=== PATIENT | female | born 1965 | race Caucasian/White ===

== ENCOUNTER 2016-07-12 17:42 | Emergency (ER) | payer BC ==
[2016-07-12] MEDS ORDERED: HYDROcodone/APAP 5-325MG 1 EACH TAB PO STA (18:16)
--- NOTE | 2016-07-12 18:21 | ED ---
Recheck HPI - General Chief Complaint: Recheck/Abnormal Lab/Rx Stated Complaint: back pain, high blood pressure Time Seen by Provider: 07/12/16 18:07 Source: patient, RN notes reviewed Mode of arrival: ambulatory Limitations: no limitations - History of Present Illness Initial Comments: Patient is a 51-year-old female presents to the emergency room for evaluation of high blood pressure. Patient states she had an appointment for routine physical with her primary care provider yesterday. Patient states her blood pressure was high. Patient states she normally is on metoprolol and lisinopril. Patient states her lisinopril was just increased from 10 mg 20 mg yesterday. Patient states that she takes her blood pressure medications as directed. Patient states she was working with her outdoor fitness trainer at the gym and he took her blood pressure and it was high. Patient states she was advised by her outdoor fitness trainer to come to the emergency room. Patient denies headache, chest pain, shortness of breath, dizziness, changes in vision. Patient states she's been having on-and-off pain in her right flank area for the past year. Patient states the pain is not any worse with movement. Patient states pain is not any worse after eating. Patient denies nausea, abdominal pain, blood in urine, pain or burning during urination or trouble urinating. Patient denies any history kidney of stones. Denies any fevers, chills, weakness. Patient denies numbness or tingling in extremities. Patient denies anesthesia. Patient denies urinary or fecal incontinence. - Related Data Home Medications Medication Instructions Recorded Confirmed Ascorbic Acid [Vitamin C] 500 mg PO DAILY 07/12/16 07/12/16 Aspirin EC [Ecotrin Low Dose] 81 mg PO HS 07/12/16 07/12/16 Atorvastatin [Lipitor] 40 mg PO HS 07/12/16 07/12/16 Gluc/Adam-MSM#1/C/Perfecto/Paresh/Bor 1 tab PO DAILY 07/12/16 07/12/16 [Glucosamine-Chondroitin Tablet] Lisinopril-Hctz 20-12.5 mg 1 tab PO DAILY 07/12/16 07/12/16 [Zestoretic 20-12.5] Metoprolol Tartrate [Lopressor] 50 tab PO HS 07/12/16 07/12/16 Multivitamins, Thera [Multivitamin 1 tab PO DAILY 07/12/16 07/12/16 (formulary)] Chris's Wort 150 mg PO DAILY 07/12/16 07/12/16 Allergies Allergy/AdvReac Type Severity Reaction Status Date / Time No Known Allergies Allergy Verified 07/12/16 19:05 Review of Systems ROS Statement: Those systems with pertinent positive or pertinent negative responses have been documented in the HPI. ROS Other: All systems not noted in ROS Statement are negative. Past Medical History Past Medical History: Hyperlipidemia, Hypertension History of Any Multi-Drug Resistant Organisms: None Reported Past Surgical History: Section, Orthopedic Surgery Past Psychological History: No Psychological Hx Reported Smoking Status: Never smoker Past Alcohol Use History: None Reported Past Drug Use History: None Reported General Exam - General Exam Comments Initial Comments: Sitting in exam room, no acute distress. Limitations: no limitations General appearance: alert, in no apparent distress Head exam: Present: atraumatic, normocephalic, normal inspection Eye exam: Present: normal appearance ENT exam: Present: normal exam Neck exam: Present: normal inspection Respiratory exam: Present: normal lung sounds bilaterally. Absent: respiratory distress Cardiovascular Exam: Present: regular rate, normal rhythm, normal heart sounds GI/Abdominal exam: Present: soft, normal bowel sounds. Absent: distended, tenderness, guarding, rebound, rigid Extremities exam: Present: normal inspection Back exam: Present: normal inspection Neurological exam: Present: alert, oriented X3, CN II-XII intact, normal gait Psychiatric exam: Present: normal affect, normal mood Skin exam: Present: warm, dry, intact, normal color. Absent: rash Course Vital Signs 07/12/16 07/12/16 17:50 18:25 Temperature 98.2 F Pulse Rate 84 81 Respiratory 20 16 Rate Blood Pressure 192/95 173/100 O2 Sat by Pulse 98 100 Oximetry Medical Decision Making - Medical Decision Making Patient is a 51-year-old female presents to the emergency room for evaluation of hypertension and back pain. Urinalysis shows no acute findings. CT shows no significant findings. Patient's blood pressure decreased after pain medications given. Advised patient to continue taking blood pressure medications as directed. Patient states she understands everything that was discussed with her. Return parameters discussed. Case discussed with Dr. Crump. - Lab Data Lab Results 07/12/16 Range/Units 18:23 Urine Color Light Yellow Urine Appearance Clear (Clear) Urine pH 6.0 (5.0-8.0) Ur Specific [place] 1.005 (1.001-1.035) Urine Protein Negative (Negative) Urine Glucose (UA) Negative (Negative) Urine Ketones Negative (Negative) Urine Blood Negative (Negative) Urine Nitrite Negative (Negative) Urine Bilirubin Negative (Negative) Urine Urobilinogen <2.0 (<2.0) mg/dL Ur Leukocyte Esterase Negative (Negative) - Radiology Data Radiology results: report reviewed, image reviewed Disposition Clinical Impression: High blood pressure, Back pain Disposition: HOME SELF-CARE Condition: Good Instructions: Hypertension (ED), Back Pain (ED) Additional Instructions: Continue taking blood pressure medications as directed. Take Tylenol or Motrin as needed for back pain. Please follow up with primary care provider for reevaluation in 1-2 days. If any new symptom arises or symptoms worsen, return to ER as soon as possible. Referrals: Monica Barrera MD [Primary Care Provider] - 1-2 days Time of Disposition: 19:19
[2016-07-12 18:29] LABS: Appearance,Urine Clear (Clear); Bilirubin,Urine Negative (Negative); Glucose,Urine (UA) Negative (Negative); Ketones,Urine Negative (Negative); Leukocyte Esterase,Urine Negative (Negative); Nitrite,Urine Negative (Negative); Protein,Urine Negative (Negative); Specific Gravity,Urine 1.005 (1.001-1.035); UA Billing (MACRO vs. MICRO) CHEM; Urobilinogen,Urine <2.0 mg/dL (<2.0)
--- NOTE | 2016-07-12 18:46 | CT ---
EXAMINATION TYPE: CT abdomen pelvis wo con DATE OF EXAM: 07/12/2016 6:39 PM COMPARISON: NONE HISTORY: Right flank pain. CT DLP: 1004.30 mGycm Automated exposure control for dose reduction was used. TECHNIQUE: Helical acquisition of images was performed from the lung bases through the pelvis. FINDINGS: Lung bases are clear. There is no pleural effusion. There is a large hiatal hernia. Liver spleen pancreas gallbladder appear normal. Bile ducts are not dilated. There is no adrenal mass . Kidneys have normal size and contour. There is no hydronephrosis. Ureters are not dilated. There is no retroperitoneal adenopathy. There is minimal vascular calcification. The appendix appears to be s een and appears normal. I see no intestinal wall thickening. There are no dilated loops. Bladder is a lmost empty. There is no sign of a pelvic mass. There is no free fluid in the pelvis. There is a mild thoracolumbar levoscoliosis. . IMPRESSION: MILD THORACOLUMBAR LEVOSCOLIOSIS. NO SIGN OF ACUTE ABDOMEN AND PELVIS. LARGE HIATAL HERNIA.
[2016-07-12 19:26] VITALS: BP 140/81; PULSE 75; RESP 18; TEMP 98.3
== END 2016-07-12 19:25 | disposition home or self-care (01) ==
LOC: EC 17:42
DX: I10 Essential (primary) hypertension (principal); M54.9 Dorsalgia, unspecified; R10.9 Unspecified abdominal pain; E78.5 Hyperlipidemia, unspecified; Z79.82 Long term (current) use of aspirin; Z79.899 Other long term (current) drug therapy
CPT/HCPCS: 74176; 81003; 99284

== ENCOUNTER → 2016-07-18 | Outpatient (CLI) | payer BC | END | disposition home or self-care (01) | LOC: LABWHC1 10:15 | PROVIDERS: ATTEND Internal Medicine | DX: E83.52 Hypercalcemia (principal) | CPT/HCPCS: 36415; 82330; 83970 ==

== ENCOUNTER → 2016-07-29 | Outpatient (CLI) | payer BC ==
--- NOTE | 2016-08-01 09:44 | MM ---
Reason for exam: screening (asymptomatic). Last mammogram was performed 6 months ago. History: Patient is postmenopausal. Benign excisional biopsy of the left breast, 1996. Benign excisional biopsy of the left breast, 1995. Physical Findings: A clinical breast exam by your physician is recommended on an annual basis and results should be correlated with mammographic findings. MG 3D Screening Mammo W/Cad Bilateral CC and MLO view(s) were taken. Prior study comparison: January 29, 2016, right breast MG diagnostic mammo RT w CAD. August 03, 2015, right breast MG work up mamm w CAD RT. February 11, 2014, bilateral MG screening mammo w CAD. December 18, 2012, bilateral digital screening mammo w/CAD. The breast tissue is heterogeneously dense. This may lower the sensitivity of mammography. No significant changes when compared with prior studies. ASSESSMENT: Negative, BI-RAD 1 RECOMMENDATION: Routine screening mammogram of both breasts in 1 year.
== END | disposition home or self-care (01) ==
LOC: RADMAMWWP 10:52
PROVIDERS: ATTEND Internal Medicine
DX: Z12.31 Encounter for screening mammogram for malignant neoplasm of breast (principal)
CPT/HCPCS: 77063; G0202

== ENCOUNTER → 2017-09-22 | Outpatient (CLI) | payer BC ==
--- NOTE | 2017-09-25 11:53 | MM ---
Reason for exam: screening (asymptomatic). Last mammogram was performed 1 year and 2 months ago. History: Patient is postmenopausal. Benign excisional biopsy of the left breast, 1996. Benign excisional biopsy of the left breast, 1995. Physical Findings: A clinical breast exam by your physician is recommended on an annual basis and results should be correlated with mammographic findings. MG 3D Screening Mammo W/Cad Bilateral CC and MLO view(s) were taken. Prior study comparison: July 29, 2016, bilateral MG 3d screening mammo w/cad. January 29, 2016, right breast MG diagnostic mammo RT w CAD. The breast tissue is heterogeneously dense. This may lower the sensitivity of mammography. There is chronic nodularity bilaterally. There is no discrete abnormality. No significant changes when compared with prior studies. ASSESSMENT: Benign, BI-RAD 2 RECOMMENDATION: Routine screening mammogram of both breasts in 1 year.
== END | disposition home or self-care (01) ==
LOC: RADMAMWWP 10:56
PROVIDERS: ATTEND Obstetrics & Gynecology
DX: Z12.31 Encounter for screening mammogram for malignant neoplasm of breast (principal)
CPT/HCPCS: 77063; 77067

== ENCOUNTER 2018-01-14 20:29 | Inpatient (IN) | payer BC ==
[2018-01-14] MEDS ORDERED: SODIUM CHLORIDE 0.9% 1,000 ML IV STA ×2 (20:36)
--- NOTE | 2018-01-14 20:55 | ED ---
Nausea/Vomiting/Diarrhea HPI - General Chief complaint: Nausea/Vomiting/Diarrhea Stated complaint: NAUSEA,VOMITING Time Seen by Provider: 01/14/18 20:29 Source: patient, EMS, RN notes reviewed Mode of arrival: EMS Limitations: no limitations - History of Present Illness Initial comments: This is a 52-year-old female who states she is had nausea vomiting today with some abdominal pain she threw up about 4 times. [place] lightheaded dizzy she thought she almost passed out. She was brought in by EMS. She states she did receive IV fluids she does feel somewhat better at this time no abdominal pain. No chest pain palpitations no diarrhea dysuria or other symptoms MD complaint: nausea, vomiting, abdominal pain - Related Data Home Medications Medication Instructions Recorded Confirmed Ascorbic Acid [Vitamin C] 500 mg PO DAILY 07/12/16 07/12/16 Aspirin EC [Ecotrin Low Dose] 81 mg PO HS 07/12/16 07/12/16 Atorvastatin [Lipitor] 40 mg PO HS 07/12/16 07/12/16 Glucosam/Adam-Msm1/C/Perfecto/Bosw 1 tab PO DAILY 07/12/16 07/12/16 [Glucosamine-Chondroitin Tablet] Lisinopril-Hctz 20-12.5 mg 1 tab PO DAILY 07/12/16 07/12/16 [Zestoretic 20-12.5] Metoprolol Tartrate [Lopressor] 50 tab PO HS 07/12/16 07/12/16 Multivitamins, Thera [Multivitamin 1 tab PO DAILY 07/12/16 07/12/16 (formulary)] [place]'s Wort 150 mg PO DAILY 07/12/16 07/12/16 Allergies Allergy/AdvReac Type Severity Reaction Status Date / Time No Known Allergies Allergy Verified 07/12/16 19:05 Review of Systems ROS Statement: Those systems with pertinent positive or pertinent negative responses have been documented in the HPI. ROS Other: All systems not noted in ROS Statement are negative. Past Medical History Past Medical History: Hyperlipidemia, Hypertension History of Any Multi-Drug Resistant Organisms: None Reported Past Surgical History: Section, Orthopedic Surgery Past Psychological History: No Psychological Hx Reported Smoking Status: Never smoker Past Alcohol Use History: None Reported Past Drug Use History: None Reported General Exam - General Exam Comments Initial Comments: This is a well-developed well-nourished awake alert oriented 3 female Limitations: no limitations General appearance: alert, in no apparent distress Head exam: Present: atraumatic, normocephalic, normal inspection Eye exam: Present: normal appearance, PERRL, EOMI. Absent: scleral icterus, conjunctival injection, periorbital swelling ENT exam: Present: mucous membranes dry Neck exam: Present: normal inspection. Absent: tenderness, meningismus, lymphadenopathy Respiratory exam: Present: normal lung sounds bilaterally. Absent: respiratory distress, wheezes, rales, rhonchi, stridor Cardiovascular Exam: Present: regular rate, normal rhythm, normal heart sounds. Absent: systolic murmur, diastolic murmur, rubs, gallop, clicks GI/Abdominal exam: Present: soft, normal bowel sounds. Absent: distended, tenderness, guarding, rebound, rigid Extremities exam: Present: normal inspection, full ROM, normal capillary refill. Absent: tenderness, pedal edema, joint swelling, calf tenderness Back exam: Present: normal inspection Neurological exam: Present: alert, oriented X3, CN II-XII intact Psychiatric exam: Present: normal affect, normal mood Skin exam: Present: warm, dry, intact, normal color. Absent: rash Course Vital Signs 01/14/18 01/14/18 01/14/18 20:31 21:07 21:36 Temperature 98.7 F Pulse Rate 72 70 71 Respiratory 18 18 Rate Blood Pressure 112/60 118/66 122/68 O2 Sat by Pulse 100 100 99 Oximetry 01/14/18 22:20 Temperature Pulse Rate 74 Respiratory 16 Rate Blood Pressure 160/83 O2 Sat by Pulse 99 Oximetry - Reevaluation(s) Reevaluation #1: 01/14/18 21:45 The patient states she was thrown from better but when she went to x-ray and got up she felt lightheaded and nauseated again. She will receive an additional 500 mL of fluid. Reevaluation #2: 01/14/18 22:57 The patient later admitted that she was having coffee-ground emesis and dark bowel movements I did perform a rectal exam with a female nurse present and is heme positive. Medical Decision Making - Medical Decision Making I did discuss findings with patient and her and with Dr. go patient will be admitted with GI consultation. Patient will speed of about a year ago which was normal this appears be upper GI. Patient also states she had a prolonged period lasting about 3 weeks this may be contributory. - Lab Data Result diagrams: 01/14/18 20:55 01/14/18 20:55 Lab Results 01/14/18 01/14/18 01/14/18 Range/Units 20:55 20:55 20:55 WBC 10.5 (3.8-10.6) k/uL RBC 3.37 L (3.80-5.40) m/uL Hgb 9.3 L (11.4-16.0) gm/dL Hct 29.6 L (34.0-46.0) % MCV 88.1 (80.0-100.0) fL MCH 27.7 (25.0-35.0) pg MCHC 31.4 (31.0-37.0) g/dL RDW 16.7 H (11.5-15.5) % Plt Count 247 (150-450) k/uL Neutrophils % 76 % Lymphocytes % 14 % Monocytes % 5 % Eosinophils % 3 % Basophils % 1 % Neutrophils # 8.0 H (1.3-7.7) k/uL Lymphocytes # 1.5 (1.0-4.8) k/uL Monocytes # 0.5 (0-1.0) k/uL Eosinophils # 0.3 (0-0.7) k/uL Basophils # 0.1 (0-0.2) k/uL Hypochromasia Moderate Anisocytosis Slight Sodium 138 (137-145) mmol/L Potassium 4.0 (3.5-5.1) mmol/L Chloride 107 (98-107) mmol/L Carbon Dioxide 24 (22-30) mmol/L Anion Gap 7 mmol/L BUN 37 H (7-17) mg/dL Creatinine 0.55 (0.52-1.04) mg/dL Est GFR (CKD-EPI)AfAm >90 (>60 ml/min/1.73 sqM) Est GFR (CKD-EPI)NonAf >90 (>60 ml/min/1.73 sqM) Glucose 115 H (74-99) mg/dL Calcium 8.5 (8.4-10.2) mg/dL Total Bilirubin 0.5 (0.2-1.3) mg/dL AST 23 (14-36) U/L ALT 30 (9-52) U/L Alkaline Phosphatase 53 (38-126) U/L Total Protein 6.1 L (6.3-8.2) g/dL Albumin 3.5 (3.5-5.0) g/dL Amylase 38 (30-110) U/L Urine Color Light Yellow Urine Appearance Cloudy H (Clear) Urine pH 7.0 (5.0-8.0) Ur Specific [place] 1.021 (1.001-1.035) Urine Protein Trace H (Negative) Urine Glucose (UA) Negative (Negative) Urine Ketones Negative (Negative) Urine Blood Negative (Negative) Urine Nitrite Negative (Negative) Urine Bilirubin Negative (Negative) Urine Urobilinogen <2.0 (<2.0) mg/dL Ur Leukocyte Esterase Moderate H (Negative) Urine RBC 2 (0-5) /hpf Urine WBC 24 H (0-5) /hpf Ur Squamous Epith Cells 6 H (0-4) /hpf Amorphous Sediment Occasional H (None) /hpf Hyaline Casts 1 (0-2) /lpf Urine Mucus Rare H (None) /hpf Stool Occult Blood (Negative) 01/14/18 Range/Units 22:05 WBC (3.8-10.6) k/uL RBC (3.80-5.40) m/uL Hgb (11.4-16.0) gm/dL Hct (34.0-46.0) % MCV (80.0-100.0) fL MCH (25.0-35.0) pg MCHC (31.0-37.0) g/dL RDW (11.5-15.5) % Plt Count (150-450) k/uL Neutrophils % % Lymphocytes % % Monocytes % % Eosinophils % % Basophils % % Neutrophils # (1.3-7.7) k/uL Lymphocytes # (1.0-4.8) k/uL Monocytes # (0-1.0) k/uL Eosinophils # (0-0.7) k/uL Basophils # (0-0.2) k/uL Hypochromasia Anisocytosis Sodium (137-145) mmol/L Potassium (3.5-5.1) mmol/L Chloride (98-107) mmol/L Carbon Dioxide (22-30) mmol/L Anion Gap mmol/L BUN (7-17) mg/dL Creatinine (0.52-1.04) mg/dL Est GFR (CKD-EPI)AfAm (>60 ml/min/1.73 sqM) Est GFR (CKD-EPI)NonAf (>60 ml/min/1.73 sqM) Glucose (74-99) mg/dL Calcium (8.4-10.2) mg/dL Total Bilirubin (0.2-1.3) mg/dL AST (14-36) U/L ALT (9-52) U/L Alkaline Phosphatase (38-126) U/L Total Protein (6.3-8.2) g/dL Albumin (3.5-5.0) g/dL Amylase (30-110) U/L Urine Color Urine Appearance (Clear) Urine pH (5.0-8.0) Ur Specific [place] (1.001-1.035) Urine Protein (Negative) Urine Glucose (UA) (Negative) Urine Ketones (Negative) Urine Blood (Negative) Urine Nitrite (Negative) Urine Bilirubin (Negative) Urine Urobilinogen (<2.0) mg/dL Ur Leukocyte Esterase (Negative) Urine RBC (0-5) /hpf Urine WBC (0-5) /hpf Ur Squamous Epith Cells (0-4) /hpf Amorphous Sediment (None) /hpf Hyaline Casts (0-2) /lpf Urine Mucus (None) /hpf Stool Occult Blood Positive H (Negative) - EKG Data -: EKG Interpreted by Mo EKG shows normal: sinus rhythm (Sinus rhythm rate 69. Interval 156 QRS 74 QT since QTC/[address]-T wave changes) - Radiology Data Radiology results: report reviewed (X-rays are nonspecific), image reviewed Disposition Clinical Impression: Upper GI bleed, Anemia, Dehydration Disposition: ADMITTED IP TO THIS [facility] Condition: Stable Referrals: Monica Barrera MD [Primary Care Provider] - 1-2 days
[2018-01-14 21:22] LABS: Amorphous Sediment,Urine Occasional /hpf; Appearance,Urine Cloudy (Clear); Bilirubin,Urine Negative (Negative); Blood,Urine Negative (Negative); Color,Urine Light Yellow; Glucose,Urine (UA) Negative (Negative); Hyaline Casts,Urine 1 /lpf (0-2); Ketones,Urine Negative (Negative); Leukocyte Esterase,Urine Moderate (Negative); Mucus,Urine Rare /hpf; Nitrite,Urine Negative (Negative); Protein,Urine Trace (Negative); RBC,Urine 2 /hpf (0-5); Specific Gravity,Urine 1.021 (1.001-1.035); Squamous Epithelial Cell,Urine 6 /hpf (0-4); Urobilinogen,Urine <2.0 mg/dL (<2.0); WBC,Urine 24 /hpf (0-5)
[2018-01-14 21:27] LABS: ALT 30 U/L (9-52); AST 23 U/L (14-36); Albumin 3.5 g/dL (3.5-5.0); Alkaline Phosphatase 53 U/L (38-126); Amylase 38 U/L (30-110); Anion Gap 7 mmol/L; Blood Urea Nitrogen 37 mg/dL (7-17); Calcium 8.5 mg/dL (8.4-10.2); Carbon Dioxide 24 mmol/L (22-30); Chloride 107 mmol/L (98-107); Glucose 115 mg/dL (74-99); Sodium 138 mmol/L (137-145); Total Bilirubin 0.5 mg/dL (0.2-1.3); Total Protein 6.1 g/dL (6.3-8.2)
[2018-01-14 21:32] LABS: Anisocytosis Slight; Basophils # (A) 0.1 k/uL (0-0.2); Basophils % (A) 1 %; Eosinophils # (A) 0.3 k/uL (0-0.7); Eosinophils % (A) 3 %; HCT 29.6 % (34.0-46.0); HGB 9.3 gm/dL (11.4-16.0); Hypochromasia Moderate; Lymphocytes # (A) 1.5 k/uL (1.0-4.8); Lymphocytes % (A) 14 %; MCH 27.7 pg (25.0-35.0); MCHC 31.4 g/dL (31.0-37.0); MCV 88.1 fL (80.0-100.0); Mean Platelet Volume 9.7; Monocytes # (A) 0.5 k/uL (0-1.0); Monocytes % (A) 5 %; Neutrophils % (A) 76 %; Platelet Count 247 k/uL (150-450); RBC 3.37 m/uL (3.80-5.40); RDW 16.7 % (11.5-15.5); WBC 10.5 k/uL (3.8-10.6)
--- NOTE | 2018-01-14 21:36 | XR ---
EXAMINATION TYPE: XR KUB DATE OF EXAM: 01/14/2018 CLINICAL DATA: 52 year old female with pain, [facility] COMPARISON: None FINDINGS: Lung bases are clear. No evidence for free intraperitoneal air. No dilated small bowel or air-fluid levels. Scattered air and stool seen throughout the colon extendi ng distally into the rectum. Mild stool burden. 6 mm calcific density in the left mid abdomen may represent a nonobstructive renal calculus. Phleboliths in the pelvis. Degenerative levoconvex curvature of the lumbar spine. IMPRESSION: 1. No evidence of bowel obstruction or free intraperitoneal air. 2. Possible 6 mm left renal calculus.
[2018-01-14] MEDS ORDERED: SODIUM CHLORIDE 0.9% 500 ML IV STA (21:43)
[2018-01-14] MEDS ORDERED: ONDANSETRON 4 MG/2 ML VIAL IVP PRN (22:59)
[2018-01-14] MEDS ORDERED: NALOXONE 0.4 MG/ML 1 ML VIAL IV PRN (22:59)
[2018-01-15 00:04] VITALS: BMI 39.1
[2018-01-15] MEDS: SODIUM CHLORIDE 0.9% 1,000 ML IV SCH ×2 (00:17→19:08)
[2018-01-15] MEDS: LISINOPRIL-HCTZ 20-12.5 MG 1 EACH TAB PO SCH (08:42)
[2018-01-15] MEDS: PANTOPRAZOLE 40 MG/10 ML VIAL IV SCH ×2 (08:43→22:10)
--- NOTE | 2018-01-15 09:33 | P.CONS ---
History of Present Illness - Reason for Consult Consult date: 01/15/18 Anemia, upper GI bleed Requesting physician: Ronnie E Sheet - Chief Complaint Nausea and vomiting - History of Present Illness 52-year-old female with medical history significant for hypertension and hypercholesterolemia who presented to the hospital with complaints of nausea and vomiting and overall sick feeling. The patient reports that she began vomiting yesterday after feeling as though her stomach was upset. She reports that the vomitus was black and coffee-ground in appearance. She reports associated diffuse abdominal cramps. She was also diaphoretic at this time. After that the patient had a bowel movement which she describes as black and tarry in appearance. No gross bleeding during the episode. No further bowel movements since the black bowel movement. She denies any use of Pepto-Bismol or iron supplementation. She has had no prior episodes. She does use NSAID medications with use of Aleve approximately one time per week. She does have symptoms of acid reflux for which she takes apple cider vinegar and sodium bicarbonate. No history of peptic ulcer disease. No prior history of anemia. On presentation to the hospital the patient had a hemoglobin of 9.3, liver enzymes were normal, amylase was normal, and stool was positive for blood. She had her first colonoscopy in 07/2017 which she reports was essentially normal but she has not had an EGD in the past. Currently she is lying in bed reporting feeling better. Review of Systems REVIEW OF SYSTEMS: CONSTITUTIONAL: Denies any fevers, weight change or fatigue but does report chills yesterday prior to presentation. CARDIOVASCULAR: Denies any chest pain, palpitations high or low blood pressures RESPIRATORY: Denies any shortness of breath, hemoptysis or cough. GENITOURINARY: No dysuria or hematuria. MUSCULOSKELETAL: No weakness reported. SKIN: Denies any new rashes or lesions, jaundice or pallor. PSYCHIATRIC: Denies any depression or anxiety. NEUROLOGY: Denies headache, denies any new focal deficits. EARS/NOSE/THROAT: No recent hearing change, congestion, nasal discharge or sore throat. EYES: No pain in eyes, discharge or change in vision. GASTROINTESTINAL: As per HPI. Past Medical History Past Medical History: Hyperlipidemia, Hypertension History of Any Multi-Drug Resistant Organisms: None Reported Past Surgical History: Section, Orthopedic Surgery Additional Past Surgical History / Comment(s): Bilateral knee replaement Past Anesthesia/Blood Transfusion Reactions: No Reported Reaction Past Psychological History: No Psychological Hx Reported Smoking Status: Never smoker Past Alcohol Use History: None Reported Past Drug Use History: None Reported - Past Family History Mother Family Medical History: Diabetes Mellitus, Renal Disease Father Family Medical History: Diabetes Mellitus Medications and Allergies Home Medications Medication Instructions Recorded Confirmed Type Ascorbic Acid [Vitamin C] 500 mg PO DAILY 07/12/16 01/15/18 History Aspirin EC [Ecotrin Low Dose] 81 mg PO HS 07/12/16 01/15/18 History Atorvastatin [Lipitor] 40 mg PO HS 07/12/16 01/15/18 History Glucosam/Adam-Msm1/C/Perfecto/Bosw 1 tab PO DAILY 07/12/16 01/15/18 History [Glucosamine-Chondroitin Tablet] Lisinopril-Hctz 20-12.5 mg 1 tab PO DAILY 07/12/16 01/15/18 History [Zestoretic 20-12.5] Metoprolol Tartrate [Lopressor] 50 tab PO HS 07/12/16 01/15/18 History Multivitamins, Thera [Multivitamin 1 tab PO DAILY 07/12/16 01/15/18 History (formulary)] C-Road's Wort 150 mg PO DAILY 07/12/16 01/15/18 History Carboxymethylcellulose Sodium 1 drop BOTH EYES DAILY 01/15/18 01/15/18 History [Refresh Tears] Allergies Allergy/AdvReac Type Severity Reaction Status Date / Time No Known Allergies Allergy Verified 01/15/18 09:13 Physical Exam Vitals: Vital Signs Temp Pulse Pulse Resp BP BP Pulse Ox 01/15/18 05:00 97.7 F 78 16 117/68 97 01/14/18 23:55 98.4 F 77 20 140/80 100 01/14/18 23:05 18 146/82 100 01/14/18 22:20 74 16 160/83 99 01/14/18 21:36 71 122/68 99 01/14/18 21:07 70 18 118/66 100 01/14/18 20:31 98.7 F 72 18 112/60 100 Intake and Output 01/14/18 01/15/18 01/15/18 22:59 06:59 14:59 Intake Total 1780 Balance 1780 Intake: Amount of Fluid Infused ( 1300 ml) Intake, IV Titration 480 Amount Sodium Chloride 0.9% 1, 480 000 ml @ 80 mls/hr IV . [id number] [facility] Rx#:[id number] Other: Voiding Method Toilet # Voids 1 # Bowel Movements 1 Weight 113.398 kg 113.398 kg On physical examination, patient appears comfortable in no apparent distress. HEAD: Normocephalic, atraumatic. EYES: No scleral icterus. No conjunctival injection. MOUTH: No lesions, tongue midline. NECK: Trachea midline, no gross abnormalities. CHEST: Clear to auscultation with no wheezing or rhonchi appreciated. HEART: Regular rate and rhythm. ABDOMEN: Soft, obese. Bowel sounds are positive. No organomegaly. No guarding or rigidity. EXTREMITIES: No pedal edema. SKIN: No rashes, no jaundice. NEUROLOGIC: Alert and oriented x3. No focal deficits. Results CBC & Chem 7: 01/14/18 20:55 01/14/18 20:55 Labs: Abnormal Lab Results - Last 24 Hours (Table) 01/14/18 01/14/18 01/14/18 Range/Units 20:55 20:55 20:55 RBC 3.37 L (3.80-5.40) m/uL Hgb 9.3 L (11.4-16.0) gm/dL Hct 29.6 L (34.0-46.0) % RDW 16.7 H (11.5-15.5) % Neutrophils # 8.0 H (1.3-7.7) k/uL BUN 37 H (7-17) mg/dL Glucose 115 H (74-99) mg/dL Total Protein 6.1 L (6.3-8.2) g/dL Urine Appearance Cloudy H (Clear) Urine Protein Trace H (Negative) Ur Leukocyte Esterase Moderate H (Negative) Urine WBC 24 H (0-5) /hpf Ur Squamous Epith Cells 6 H (0-4) /hpf Amorphous Sediment Occasional H (None) /hpf Urine Mucus Rare H (None) /hpf Stool Occult Blood (Negative) 01/14/18 Range/Units 22:05 RBC (3.80-5.40) m/uL Hgb (11.4-16.0) gm/dL Hct (34.0-46.0) % RDW (11.5-15.5) % Neutrophils # (1.3-7.7) k/uL BUN (7-17) mg/dL Glucose (74-99) mg/dL Total Protein (6.3-8.2) g/dL Urine Appearance (Clear) Urine Protein (Negative) Ur Leukocyte Esterase (Negative) Urine WBC (0-5) /hpf Ur Squamous Epith Cells (0-4) /hpf Amorphous Sediment (None) /hpf Urine Mucus (None) /hpf Stool Occult Blood Positive H (Negative) Abdominal x-ray: report reviewed (No bowel obstruction or free air with left renal calculi noted) Assessment and Plan (1) Upper GI bleed Narrative/Plan: Suspicion of upper GI bleeding patient presenting with coffee-ground emesis and one episode of melanotic stool. The patient has no prior history of peptic ulcer disease but she does suffer from gastroesophageal reflux disease which she treats with apple cider vinegar and sodium bicarbonate as needed. The patient was found to be anemic on presentation with a hemoglobin of 9.3, and reports that she has not been anemic in the past. Suspicion is for upper GI bleed with differential including erosive gastritis/esophagitis, peptic ulcer disease, bleeding vessel or other etiology. Current Visit: Yes Status: Acute Code(s): K92.2 - GASTROINTESTINAL HEMORRHAGE, UNSPECIFIED SNOMED Code(s): 89352100 (2) Anemia Narrative/Plan: Anemia of acute blood loss, secondary to above. Current Visit: Yes Status: Acute Code(s): D64.9 - ANEMIA, UNSPECIFIED SNOMED Code(s): 066939617 Plan: Supportive care Monitor hemoglobin and hematocrit and transfuse as needed Nothing by mouth Protonix 40 mg IV twice a day Plan for EGD Further recommendations pending findings on EGD Thank you for allowing us to participate in the care of this patient we will continue to follow
[2018-01-15] MEDS ORDERED: PROPOFOL 10 MG/ML 20 ML VIAL IV ONE (09:42)
[2018-01-15] MEDS ORDERED: LIDOCAINE 1% INJ 10MG/ML (20 ML MDV) ONE (09:42)
[2018-01-15] MEDS ORDERED: IV FLUID CONTINUATION 1,000 ML IV ONE (09:42)
[2018-01-15] MEDS ORDERED: LACTATED RINGERS 1,000 ML IV ONE (10:03)
--- NOTE | 2018-01-15 13:32 | P.PCN ---
Date of Procedure: 01/15/18 Description of Procedure: Esophagogastroduodenoscopy ( EGD) Date of Procedure: 01/15/2018 Preoperative Diagnosis: Anemia of acute blood loss, melena Postoperative Diagnosis: Large hiatal hernia, gastritis and nonbleeding superficial erosions of the hiatal hernia and stomach, duodenitis Procedure Performed: Esophagogastroduodenoscopy with cold biopsy Anesthesia: IV sedation per anesthesia Breif History: Patient is a pleasant 52-year-old female with a medical history significant for hypertension and dyslipidemia who presented to the hospital with complaints of multiple episodes of vomiting coffee-ground emesis and a black tarry bowel movement and was subsequently found to be anemic with a hemoglobin 9.3 on presentation. The patient does report a history of GERD however only takes apple cider vinegar and sodium bicarbonate at home. Yesterday she had nausea with multiple episodes of coffee-ground emesis and one episode of melena. She presented to the hospital where she was found to be anemic with a hemoglobin of 9.3 and had a stool which tested positive for occult blood. Procedure Details: After informed consent was obtained, the patient was brought into the endoscopy unit. IV conscious sedation was administered by Anesthesia under continuous monitoring. Initially the Olympus GIF-190 video endoscope was inserted into the mouth. Esophagus intubated without any difficulty. It was gradually advanced into the stomach and duodenum and carefully examined. The bulb and the second part of the duodenum appeared grossly normal, however some mild superficial irritation was noted suggestive of duodenitis which was biopsied. The scope at this time was withdrawn to the stomach, adequately insufflated with air, and upon careful examination, there was evidence of superficial erosions and irritation which extended from the hiatal hernia sac into the stomach with biopsies taken. Otherwise the mucosa of the antrum, body, cardia and the fundus appeared grossly normal. The scope was then withdrawn into the esophagus. The GE junction was located at 35 cm from the incisors. The esophagus appeared normal. A large hiatal hernia was noted with findings stated above. Recommendations: Findings of this examination were discussed with the patient. She'll need to continue on Protonix 40 mg twice daily. Okay for full liquid diet today. Monitor hemoglobin and hematocrit and transfuse as needed. Await pathology from biopsies. Follow up with gastroenterology in 2 weeks at which time we will have discussion about possibility of repeat upper endoscopy to ensure healing in 6-8 weeks. Author: Alvin Rudolph MD
[2018-01-15 13:55] LABS: Anisocytosis Slight; Basophils % (A) 0 %; Eosinophils # (A) 0.3 k/uL (0-0.7); Eosinophils % (A) 4 %; HCT 26.1 % (34.0-46.0); HGB 8.4 gm/dL (11.4-16.0); Hypochromasia Moderate; Lymphocytes # (A) 1.7 k/uL (1.0-4.8); Lymphocytes % (A) 26 %; MCH 28.6 pg (25.0-35.0); MCHC 32.2 g/dL (31.0-37.0); MCV 88.9 fL (80.0-100.0); Mean Platelet Volume 10.4; Monocytes # (A) 0.3 k/uL (0-1.0); Monocytes % (A) 4 %; Neutrophils # (A) 4.2 k/uL (1.3-7.7); Neutrophils % (A) 64 %; Platelet Count 184 k/uL (150-450); RBC 2.94 m/uL (3.80-5.40); RDW 17.2 % (11.5-15.5); WBC 6.6 k/uL (3.8-10.6)
--- NOTE | 2018-01-15 15:56 | P.HPIM ---
History of Present Illness H&P Date: 01/15/18 Chief Complaint: Coffee-ground emesis Patient is a 52-year-old female with a known history of hypertension, hyperlipidemia came to ER with complaints of nausea and vomiting started yesterday afternoon. Patient says that she felt like she was having cold and sick feeling and stomach upset. Vomitus is mainly coffee-ground colored associated with abdominal pain mainly in the epigastric cramping type pain. Patient was also noticed dark-colored stools and felt dizzy as well. Denied any bright red blood in the stool. No fever no chills. No cough or sputum production. Patient does use occasional elevated at home for arthritic pain. Last use 1 week ago. Otherwise patient denied any recent NSAID use. No History of peptic ulcer disease. Hemoglobin was 9.3 on admission. FOBT is positive. Repeat hemoglobin 8.4. BUN 37. Patient does have history of menorrhagia and last period went on for a month. As per patient she thinks she is approaching menopause. No recent illnesses or sick contacts. No recent gastroenteritis. She had her first colonoscopy in 07/2017 which she reports was essentially normal but she has not had an EGD in the past. Currently she is lying in bed reporting feeling better. EGD showed: Large hiatal hernia, gastritis and nonbleeding superficial erosions of the hiatal hernia and stomach, duodenitis Review of Systems Constitutional: Patient denies any fever or chills . No generalized weakness or weight loss. Abdomen: Patient does have nausea and vomiting and coffee-ground emesis and abdominal pain. No diarrhea patient also had black colored stools.. Cardiovascular: Patient denies any chest pain or short of breath no palpitations. Respiratory: patient denied any cough is from production. No shortness of breath Neurologic: Patient denied any numbness or tingling headache. Musculoskeletal: Patient denies any complaints of joint swelling or deformity. Skin: Negative Psychiatric: Negative Endocrine: No heat or cold intolerance. No recent weight gain. Genitourinary: No dysuria or hematuria. All other 14 point ROS negative except the above Past Medical History Past Medical History: Hyperlipidemia, Hypertension History of Any Multi-Drug Resistant Organisms: None Reported Past Surgical History: Section, Orthopedic Surgery Additional Past Surgical History / Comment(s): Bilateral knee replaement Past Anesthesia/Blood Transfusion Reactions: No Reported Reaction Past Psychological History: No Psychological Hx Reported Smoking Status: Never smoker Past Alcohol Use History: None Reported Past Drug Use History: None Reported - Past Family History Mother Family Medical History: Diabetes Mellitus, Renal Disease Father Family Medical History: Diabetes Mellitus Medications and Allergies Home Medications Medication Instructions Recorded Confirmed Type Ascorbic Acid [Vitamin C] 500 mg PO DAILY 07/12/16 01/15/18 History Aspirin EC [Ecotrin Low Dose] 81 mg PO HS 07/12/16 01/15/18 History Atorvastatin [Lipitor] 40 mg PO HS 07/12/16 01/15/18 History Glucosam/Adam-Msm1/C/Perfecto/Bosw 1 tab PO DAILY 07/12/16 01/15/18 History [Glucosamine-Chondroitin Tablet] Lisinopril-Hctz 20-12.5 mg 1 tab PO DAILY 07/12/16 01/15/18 History [Zestoretic 20-12.5] Metoprolol Tartrate [Lopressor] 50 tab PO HS 07/12/16 01/15/18 History Multivitamins, Thera [Multivitamin 1 tab PO DAILY 07/12/16 01/15/18 History (formulary)] Hyden's Wort 150 mg PO DAILY 07/12/16 01/15/18 History Carboxymethylcellulose Sodium 1 drop BOTH EYES DAILY 01/15/18 01/15/18 History [Refresh Tears] Allergies Allergy/AdvReac Type Severity Reaction Status Date / Time No Known Allergies Allergy Verified 01/15/18 09:13 Physical Exam Vitals: Vital Signs Temp Pulse Pulse Resp BP BP Pulse Ox 01/15/18 05:00 97.7 F 78 16 117/68 97 01/14/18 23:55 98.4 F 77 20 140/80 100 01/14/18 23:05 18 146/82 100 01/14/18 22:20 74 16 160/83 99 01/14/18 21:36 71 122/68 99 01/14/18 21:07 70 18 118/66 100 01/14/18 20:31 98.7 F 72 18 112/60 100 Intake and Output 01/14/18 01/15/18 01/15/18 22:59 06:59 14:59 Intake Total 1780 300 Balance 1780 300 Intake: IV 300 Amount of Fluid Infused ( 1300 ml) Intake, IV Titration 480 Amount Sodium Chloride 0.9% 1, 480 000 ml @ 80 mls/hr IV . [id number] [facility] Rx#:[id number] Other: Voiding Method Toilet # Voids 1 # Bowel Movements 1 Weight 113.398 kg 113.398 kg PHYSICAL EXAMINATION: Patient is lying in the bed comfortably, no acute distress, awake alert and oriented.. HEENT: Normocephalic. Neck is supple. Pupils reactive. Nostrils clear. Oral cavity is moist. Ears reveal no drainage. Neck reveals no JVD, carotid bruits, or thyromegaly. CHEST EXAMINATION: Trachea is central. Symmetrical expansion. Lung love clear to auscultation and percussion. CARDIAC: Normal S1, S2 with no gallops. No murmurs ABDOMEN: Soft. Bowel sounds normal. No organomegaly. No abdominal bruits. Extremities: reveal no edema. No clubbing or cyanosis Neurologically awake, alert, oriented x3 with well-coordinated movements. No focal deficits noted Skin: No rash or skin lesions. Psychiatric: Coperative. Nonsuicidal Musculoskeletal: No joint swelling or deformity. Normal range of motion. Results CBC & Chem 7: 01/15/18 13:08 01/14/18 20:55 Labs: Abnormal Lab Results - Last 24 Hours (Table) 01/14/18 01/14/18 01/14/18 Range/Units 20:55 20:55 20:55 RBC 3.37 L (3.80-5.40) m/uL Hgb 9.3 L (11.4-16.0) gm/dL Hct 29.6 L (34.0-46.0) % RDW 16.7 H (11.5-15.5) % Neutrophils # 8.0 H (1.3-7.7) k/uL BUN 37 H (7-17) mg/dL Glucose 115 H (74-99) mg/dL Total Protein 6.1 L (6.3-8.2) g/dL Urine Appearance Cloudy H (Clear) Urine Protein Trace H (Negative) Ur Leukocyte Esterase Moderate H (Negative) Urine WBC 24 H (0-5) /hpf Ur Squamous Epith Cells 6 H (0-4) /hpf Amorphous Sediment Occasional H (None) /hpf Urine Mucus Rare H (None) /hpf Stool Occult Blood (Negative) 01/14/18 Range/Units 22:05 RBC (3.80-5.40) m/uL Hgb (11.4-16.0) gm/dL Hct (34.0-46.0) % RDW (11.5-15.5) % Neutrophils # (1.3-7.7) k/uL BUN (7-17) mg/dL Glucose (74-99) mg/dL Total Protein (6.3-8.2) g/dL Urine Appearance (Clear) Urine Protein (Negative) Ur Leukocyte Esterase (Negative) Urine WBC (0-5) /hpf Ur Squamous Epith Cells (0-4) /hpf Amorphous Sediment (None) /hpf Urine Mucus (None) /hpf Stool Occult Blood Positive H (Negative) Thrombosis Risk Factor Assmnt - DVT/VTE Prophylaxis DVT/VTE Prophylaxis: Mechanical Prophylaxis ordered - Choose All That Apply Any of the Below Risk Factors Present?: Yes Each Factor Represents 1 point: Age 41-60 years, Obesity (BMI >25) Other Risk Factors: No Other congenital or acquired thrombophilia - If yes, enter type in comment: No Thrombosis Risk Factor Assessment Total Risk Factor Score: 2 Thrombosis Risk Factor Assessment Level: Low Risk Assessment and Plan Assessment: Acute blood loss anemia secondary to GI bleed upper. Large hiatal hernia Acute Gastritis and esophagitis and duodenitis. Chronic blood loss anemia secondary to menorrhagia. Rule out iron deficiency. Morbid obesity BMI 39.2 Hypertension controlled hyperlipidemia Asymptomatic bacteriuria with abnormal urinalysis. We will repeat UA and culture today.. DVT prophylaxis with SCDs Plan: Patient will be continued on clear liquid diet and monitor H&H. Patient is status post EGD. Continue PPI twice a day and follow closely. Advance diet as tolerated. Further recommendations based on the clinical course. Time with Patient: Greater than 30
[2018-01-15 20:08] LABS: Anisocytosis Slight; Basophils % (A) 0 %; Eosinophils # (A) 0.4 k/uL (0-0.7); Eosinophils % (A) 4 %; HCT 24.6 % (34.0-46.0); HGB 7.9 gm/dL (11.4-16.0); Hypochromasia Marked; Lymphocytes # (A) 1.9 k/uL (1.0-4.8); Lymphocytes % (A) 20 %; MCH 28.4 pg (25.0-35.0); MCHC 32.1 g/dL (31.0-37.0); MCV 88.6 fL (80.0-100.0); Mean Platelet Volume 8.8; Monocytes # (A) 0.5 k/uL (0-1.0); Monocytes % (A) 5 %; Neutrophils # (A) 6.5 k/uL (1.3-7.7); Neutrophils % (A) 69 %; Platelet Count 231 k/uL (150-450); RBC 2.77 m/uL (3.80-5.40); RDW 17.2 % (11.5-15.5); WBC 9.5 k/uL (3.8-10.6)
[2018-01-15] MEDS ORDERED: METOPROLOL TARTRATE 50 MG TAB PO SCH (21:00)
[2018-01-15] MEDS ORDERED: ATORVASTATIN 40 MG TAB PO SCH (21:00)
[2018-01-15 23:00] VITALS: RESP 16
[2018-01-16 00:20] LABS: Anisocytosis Slight; Basophils # (A) 0.1 k/uL (0-0.2); Basophils % (A) 1 %; Eosinophils # (A) 0.4 k/uL (0-0.7); Eosinophils % (A) 5 %; Hypochromasia Marked; Lymphocytes # (A) 2.1 k/uL (1.0-4.8); Lymphocytes % (A) 27 %; MCHC 30.3 g/dL (31.0-37.0); MCV 88.9 fL (80.0-100.0); Mean Platelet Volume 10.7; Monocytes # (A) 0.4 k/uL (0-1.0); Monocytes % (A) 5 %; Neutrophils # (A) 4.7 k/uL (1.3-7.7); Neutrophils % (A) 60 %; Platelet Count 198 k/uL (150-450); RBC 2.59 m/uL (3.80-5.40); RDW 17.1 % (11.5-15.5); WBC 7.8 k/uL (3.8-10.6)
[2018-01-16] MEDS: SODIUM CHLORIDE 0.9% 1,000 ML IV SCH ×2 (04:43→13:41)
[2018-01-16 07:57] LABS: Anisocytosis Slight; Basophils # (A) 0.1 k/uL (0-0.2); Basophils % (A) 1 %; Eosinophils # (A) 0.3 k/uL (0-0.7); Eosinophils % (A) 6 %; HCT 24.1 % (34.0-46.0); HGB 7.5 gm/dL (11.4-16.0); Hypochromasia Marked; Lymphocytes # (A) 1.4 k/uL (1.0-4.8); Lymphocytes % (A) 25 %; MCH 28.3 pg (25.0-35.0); MCHC 31.3 g/dL (31.0-37.0); MCV 90.4 fL (80.0-100.0); Mean Platelet Volume 8.9; Monocytes # (A) 0.4 k/uL (0-1.0); Monocytes % (A) 6 %; Neutrophils # (A) 3.2 k/uL (1.3-7.7); Neutrophils % (A) 58 %; Platelet Count 209 k/uL (150-450); RBC 2.67 m/uL (3.80-5.40); RDW 17.1 % (11.5-15.5); WBC 5.6 k/uL (3.8-10.6)
[2018-01-16] MEDS: LISINOPRIL-HCTZ 20-12.5 MG 1 EACH TAB PO SCH (08:07)
[2018-01-16] MEDS: PANTOPRAZOLE 40 MG/10 ML VIAL IV SCH (08:08)
--- NOTE | 2018-01-16 10:05 | P.PN ---
Subjective Progress Note Date: 01/16/18 Principal diagnosis: Nausea vomiting coffee-ground emesis and anemia 52-year-old female admitted with intractable nausea vomiting coffee-ground emesis and anemia. EGD yesterday findings of large hiatal hernia gastritis nonbleeding superficial erosions of a hiatal hernia and stomach biopsies pending. He will and 7.5. Feels well. Afebrile. Objective - Vital Signs Vital signs: Vital Signs Temp 97.5 F L 01/16/18 05:00 Pulse 82 01/16/18 05:00 Resp 16 01/16/18 05:00 BP 129/79 01/16/18 05:00 Pulse Ox 97 01/16/18 05:00 Intake & Output 01/15/18 01/16/18 01/16/18 18:59 06:59 18:59 Intake Total 300 590 Balance 300 590 Weight 113.398 kg Intake: IV 300 Oral 590 Other: Voiding Method Toilet Toilet Toilet # Voids 2 2 - Exam General appearance: The patient is alert, oriented, in no acute distress. HET: Head is normocephalic and atraumatic. Pupils are equal and reactive. Oropharynx is clear without lesions. Neck: Supple without lymphadenopathy. Trachea midline. Heart: S1 S2. Regular rate and rhythm. Lungs: No crackles or wheezes are heard. Abdomen: Soft, nontender, nondistended with bowel sounds. No peritoneal signs. No palpable organomegaly or masses. Extremities: Normal skin color and turgor. No cyanosis, rash, ulceration, clubbing, or edema. Radial and pedal pulses are 2/4 bilaterally. Neurological: No focal deficits. Strength and sensation are grossly intact. - Labs CBC & Chem 7: 01/16/18 07:03 01/14/18 20:55 Labs: Abnormal Lab Results - Last 24 Hours (Table) 01/15/18 01/15/18 01/16/18 Range/Units 13:08 19:38 00:03 RBC 2.94 L 2.77 L 2.59 L (3.80-5.40) m/uL Hgb 8.4 L 7.9 L 7.0 L (11.4-16.0) gm/dL Hct 26.1 L 24.6 L 23.0 L (34.0-46.0) % MCHC 30.3 L (31.0-37.0) g/dL RDW 17.2 H 17.2 H 17.1 H (11.5-15.5) % 01/16/18 Range/Units 07:03 RBC 2.67 L (3.80-5.40) m/uL Hgb 7.5 L (11.4-16.0) gm/dL Hct 24.1 L (34.0-46.0) % MCHC (31.0-37.0) g/dL RDW 17.1 H (11.5-15.5) % Assessment and Plan (1) Upper GI bleed Narrative/Plan: Status post EGD large hiatal hernia superficial erosions duodenitis biopsies pending Current Visit: Yes Status: Acute Code(s): K92.2 - GASTROINTESTINAL HEMORRHAGE, UNSPECIFIED SNOMED Code(s): 80066652 (2) Anemia Current Visit: Yes Status: Acute Code(s): D64.9 - ANEMIA, UNSPECIFIED SNOMED Code(s): 196056794 (3) Hiatal hernia Current Visit: Yes Status: Acute Code(s): K44.9 - DIAPHRAGMATIC HERNIA WITHOUT OBSTRUCTION OR GANGRENE SNOMED Code(s): 48275908 Plan: 1. Agreeable for discharge. CBC monitoring in outpatient setting. Follow-up in office in 2-3 weeks for reevaluation. Protonix 40 mg twice daily. Diet as tolerated. We'll follow as needed. Assessment and plan a care discussed with Dr. Rudolph
--- NOTE | 2018-01-16 10:29 | P.DS ---
Providers Date of admission: 01/14/18 22:59 Expected date of discharge: 01/16/18 Attending physician: MD Dr. Hope Phillip Consults: 01/14/18 23:00 Consult Physician Routine Consulting Provider: Genoveva Mariscal Consult Reason/Comments: GI bleed, anemia Do you want consulting provider notified?: Yes Primary care physician: Monica Barrera [facility] Course: Final Diagnoses: Acute blood loss anemia secondary to GI bleed upper. Large hiatal hernia Acute Gastritis and esophagitis and duodenitis. Chronic blood loss anemia secondary to menorrhagia. Rule out iron deficiency. Morbid obesity BMI 39.2 Hypertension controlled hyperlipidemia Asymptomatic bacteriuria with abnormal urinalysis. Hospital course:Patient is a 52-year-old female with a known history of hypertension, hyperlipidemia came to ER with complaints of nausea and vomiting started yesterday afternoon. Patient says that she felt like she was having cold and sick feeling and stomach upset. Vomitus is mainly coffee-ground colored associated with abdominal pain mainly in the epigastric cramping type pain. Patient was also noticed dark-colored stools and felt dizzy as well. Denied any bright red blood in the stool. No fever no chills. No cough or sputum production. Patient does use occasional elevated at home for arthritic pain. Last use 1 week ago. Otherwise patient denied any recent NSAID use. No History of peptic ulcer disease. Hemoglobin was 9.3 on admission. FOBT is positive. Repeat hemoglobin 8.4. BUN 37. Patient does have history of menorrhagia and last period went on for a month. As per patient she thinks she is approaching menopause. No recent illnesses or sick contacts. No recent gastroenteritis. She had her first colonoscopy in 07/2017 which she reports was essentially normal but she has not had an EGD in the past. Currently she is lying in bed reporting feeling better. EGD showed: Large hiatal hernia, gastritis and nonbleeding superficial erosions of the hiatal hernia and stomach, duodenitis. Cleared by GI for consult. Patient is being discharged home in a stable condition with guarded prognosis. GENERAL: no acute distress, awake alert and oriented X 3 CHEST EXAMINATION: Lung love clear to auscultation and percussion. CARDIAC: Normal S1, S2 with no gallops. No murmurs ABDOMEN: Soft. Bowel sounds normal. No organomegaly. Neurologically No focal deficits noted The impression and plan of care has been dictated as directed. : I performed a history and examination of this patient, discussed the same with the dictator. I agree with the dictator's note ,documented as a scribe. Any additional findings or plans will be noted. Time taken: 35 minutes Patient Condition at Discharge: Stable Plan - Discharge Summary Discharge Rx Participant: Yes New Discharge Prescriptions: New Pantoprazole [Protonix] 40 mg PO AC-BID #60 tablet. Continue Metoprolol Tartrate [Lopressor] 50 tab PO HS Multivitamins, Thera [Multivitamin (formulary)] 1 tab PO DAILY Lisinopril-Hctz 20-12.5 mg [Zestoretic 20-12.5] 1 tab PO DAILY Glucosam/Adam-Msm1/C/Perfecto/Bosw [Glucosamine-Chondroitin Tablet] 1 tab PO DAILY Atorvastatin [Lipitor] 40 mg PO HS Carboxymethylcellulose Sodium [Refresh Tears] 1 drop BOTH EYES DAILY Discontinued Aspirin EC [Ecotrin Low Dose] 81 mg PO HS Ascorbic Acid [Vitamin C] 500 mg PO DAILY Dodson's Wort 150 mg PO DAILY Discharge Medication List Atorvastatin [Lipitor] 40 mg PO HS 07/12/16 [History] Glucosam/Adam-Msm1/C/Perfecto/Bosw [Glucosamine-Chondroitin Tablet] 1 tab PO DAILY 07/12/16 [History] Lisinopril-Hctz 20-12.5 mg [Zestoretic 20-12.5] 1 tab PO DAILY 07/12/16 [History ] Metoprolol Tartrate [Lopressor] 50 tab PO HS 07/12/16 [History] Multivitamins, Thera [Multivitamin (formulary)] 1 tab PO DAILY 07/12/16 [History ] Carboxymethylcellulose Sodium [Refresh Tears] 1 drop BOTH EYES DAILY 01/15/18 [ History] Pantoprazole [Protonix] 40 mg PO AC-BID #60 tablet. 01/16/18 [Rx] Follow up Appointment(s)/Referral(s): Monica Barrera MD [Primary Care Provider] - 3 Days Alvin Rudolph MD [STAFF PHYSICIAN] - 2 Weeks Ambulatory/Diagnostic Orders: Complete Blood Count w/diff [LAB.AMB] Time Frame: 3 Days, Location: None Selected Activity/Diet/Wound Care/Special Instructions: asa on hold currently, re-eval with PCP repeat UA pending
[2018-01-16 12:04] LABS: Appearance,Urine Clear (Clear); Bilirubin,Urine Negative (Negative); Blood,Urine Trace (Negative); Color,Urine Colorless; Glucose,Urine (UA) Negative (Negative); Ketones,Urine Negative (Negative); Leukocyte Esterase,Urine Negative (Negative); Nitrite,Urine Negative (Negative); Protein,Urine Negative (Negative); RBC,Urine <1 /hpf (0-5); Specific Gravity,Urine 1.003 (1.001-1.035); Squamous Epithelial Cell,Urine <1 /hpf (0-4); Urobilinogen,Urine <2.0 mg/dL (<2.0)
[2018-01-16 12:28] LABS: Iron Saturation 42.42 (12.00-45.00)
[2018-01-16 13:05] VITALS: BP 125/80; PULSE 75; TEMP 98
[2018-01-16 17:50] LABS: Anisocytosis Slight; HCT 26.4 % (34.0-46.0); HGB 8.1 gm/dL (11.4-16.0); Hypochromasia Marked; MCH 27.5 pg (25.0-35.0); MCHC 30.7 g/dL (31.0-37.0); MCV 89.5 fL (80.0-100.0); Mean Platelet Volume 10.1; Platelet Count 231 k/uL (150-450); RBC 2.95 m/uL (3.80-5.40); RDW 17.1 % (11.5-15.5); WBC 8.4 k/uL (3.8-10.6)
== END 2018-01-16 19:16 | disposition home or self-care (01) | DRG 378 ==
LOC: EC 20:29 → 5ONC 22:59
PROVIDERS: ADMIT Internal Medicine; ATTEND Internal Medicine
PROC: 0DB78ZX Excision of Stomach, Pylorus, Via Natural or Artificial Opening Endoscopic, Diagnostic (ICD-10-PCS; 2018-01-15)
PROC: 0DB98ZX Excision of Duodenum, Via Natural or Artificial Opening Endoscopic, Diagnostic (ICD-10-PCS; principal; 2018-01-15 08:10)
DX: K29.01 Acute gastritis with bleeding (principal); D62 Acute posthemorrhagic anemia; K44.9 Diaphragmatic hernia without obstruction or gangrene; E66.01 Morbid (severe) obesity due to excess calories; E78.00 Pure hypercholesterolemia, unspecified; E78.5 Hyperlipidemia, unspecified; E86.0 Dehydration; I10 Essential (primary) hypertension; K21.0 Gastro-esophageal reflux disease with esophagitis; K29.80 Duodenitis without bleeding; N92.0 Excessive and frequent menstruation with regular cycle; Z68.39 Body mass index [BMI] 39.0-39.9, adult; Z83.3 Family history of diabetes mellitus; Z84.1 Family history of disorders of kidney and ureter; Z96.653 Presence of artificial knee joint, bilateral; Z79.1 Long term (current) use of non-steroidal anti-inflammatories (NSAID); Z79.82 Long term (current) use of aspirin; Z79.899 Other long term (current) drug therapy
CPT/HCPCS: 36415; 43239; 74018; 80053; 81001; 82150; 82272; 82728; 83540; 83550; 84466; 85025; 85027; 86850; 86900; 86901; 88305; 93005; 96360; 96361; 99285

== ENCOUNTER → 2018-01-19 | Outpatient (CLI) | payer BC ==
[2018-01-19 10:00] LABS: Anisocytosis Slight; Basophils # (A) 0.1 k/uL (0-0.2); Basophils % (A) 1 %; Eosinophils # (A) 0.4 k/uL (0-0.7); Eosinophils % (A) 7 %; HCT 28.5 % (34.0-46.0); HGB 8.8 gm/dL (11.4-16.0); Hypochromasia Marked; Lymphocytes # (A) 1.2 k/uL (1.0-4.8); Lymphocytes % (A) 22 %; MCH 27.8 pg (25.0-35.0); MCHC 30.9 g/dL (31.0-37.0); MCV 90.2 fL (80.0-100.0); Mean Platelet Volume 9.2; Monocytes # (A) 0.4 k/uL (0-1.0); Monocytes % (A) 8 %; Neutrophils # (A) 3.2 k/uL (1.3-7.7); Neutrophils % (A) 60 %; Platelet Count 260 k/uL (150-450); RBC 3.16 m/uL (3.80-5.40); WBC 5.4 k/uL (3.8-10.6)
[2018-01-19 10:11] LABS: Anion Gap 10 mmol/L; Blood Urea Nitrogen 14 mg/dL (7-17); Calcium 9.1 mg/dL (8.4-10.2); Carbon Dioxide 26 mmol/L (22-30); Chloride 105 mmol/L (98-107); Glucose 102 mg/dL (74-99); Sodium 141 mmol/L (137-145)
== END ==
LOC: LABWHC1 08:24
PROVIDERS: ATTEND Nurse Practitioner
DX: D64.9 Anemia, unspecified (principal); K25.9 Gastric ulcer, unspecified as acute or chronic, without hemorrhage or perforation
CPT/HCPCS: 36415; 80048; 85025

== ENCOUNTER → 2018-03-27 | Outpatient (CLI) | payer BC ==
[2018-03-27 12:08] LABS: Anisocytosis Slight; Basophils # (A) 0.1 k/uL (0-0.2); Basophils % (A) 1 %; Eosinophils # (A) 0.4 k/uL (0-0.7); Eosinophils % (A) 6 %; HCT 41.7 % (34.0-46.0); Lymphocytes # (A) 1.4 k/uL (1.0-4.8); Lymphocytes % (A) 23 %; MCH 27.1 pg (25.0-35.0); MCHC 31.7 g/dL (31.0-37.0); MCV 85.7 fL (80.0-100.0); Mean Platelet Volume 10.2; Monocytes # (A) 0.4 k/uL (0-1.0); Monocytes % (A) 7 %; Neutrophils # (A) 3.8 k/uL (1.3-7.7); Neutrophils % (A) 61 %; Platelet Count 199 k/uL (150-450); RBC 4.87 m/uL (3.80-5.40); RDW 16.8 % (11.5-15.5); WBC 6.3 k/uL (3.8-10.6)
[2018-03-27 12:17] LABS: HGB 13.2 gm/dL (11.4-16.0)
== END | disposition home or self-care (01) ==
LOC: LAB 10:04
PROVIDERS: ATTEND Internal Medicine
DX: D50.0 Iron deficiency anemia secondary to blood loss (chronic) (principal)
CPT/HCPCS: 85025

== ENCOUNTER → 2018-06-22 | Outpatient (CLI) | payer BC ==
[2018-06-22 11:24] LABS: Anisocytosis Slight; Basophils # (A) 0.1 k/uL (0-0.2); Basophils % (A) 1 %; Eosinophils # (A) 0.3 k/uL (0-0.7); Eosinophils % (A) 4 %; HCT 40.2 % (34.0-46.0); HGB 13.1 gm/dL (11.4-16.0); Lymphocytes # (A) 1.8 k/uL (1.0-4.8); Lymphocytes % (A) 22 %; MCH 29.6 pg (25.0-35.0); MCHC 32.4 g/dL (31.0-37.0); MCV 91.3 fL (80.0-100.0); Monocytes # (A) 0.5 k/uL (0-1.0); Monocytes % (A) 6 %; Neutrophils # (A) 5.1 k/uL (1.3-7.7); Neutrophils % (A) 64 %; Platelet Count 234 k/uL (150-450); RBC 4.41 m/uL (3.80-5.40); RDW 16.3 % (11.5-15.5)
== END ==
LOC: LABWHC1 10:32
PROVIDERS: ATTEND Internal Medicine
DX: D50.0 Iron deficiency anemia secondary to blood loss (chronic) (principal)
CPT/HCPCS: 36415; 85025

== ENCOUNTER → 2018-09-25 | Outpatient (CLI) | payer BC ==
--- NOTE | 2018-09-26 12:09 | MM ---
Reason for exam: screening (asymptomatic). Last mammogram was performed 1 year ago. History: Patient is postmenopausal. Benign excisional biopsy of the left breast, 1996. Benign excisional biopsy of the left breast, 1995. Physical Findings: A clinical breast exam by your physician is recommended on an annual basis and results should be correlated with mammographic findings. MG 3D Screening Mammo W/Cad Bilateral CC and MLO view(s) were taken. Prior study comparison: September 22, 2017, bilateral MG 3d screening mammo w/cad. July 29, 2016, bilateral MG 3d screening mammo w/cad. The breast tissue is heterogeneously dense. This may lower the sensitivity of mammography. There are benign appearing round calcifications in the left breast. There is chronic nodularity in the left breast. There is no discrete abnormality. ASSESSMENT: Benign, BI-RAD 2 RECOMMENDATION: Routine screening mammogram of both breasts in 1 year.
== END | disposition home or self-care (01) ==
LOC: RADMAMWWP 09:51
PROVIDERS: ATTEND Internal Medicine
DX: Z12.31 Encounter for screening mammogram for malignant neoplasm of breast (principal)
CPT/HCPCS: 77063; 77067

== ENCOUNTER → 2020-05-15 | Outpatient (CLI) | payer BC ==
--- NOTE | 2020-05-18 09:33 | MM ---
Reason for exam: screening (asymptomatic). Last mammogram was performed 1 year and 8 months ago. History: Patient is postmenopausal. Benign excisional biopsy of the left breast, 1996. Benign excisional biopsy of the left breast, 1995. Physical Findings: A clinical breast exam by your physician is recommended on an annual basis and results should be correlated with mammographic findings. MG 3D Screening Mammo W/Cad Bilateral CC and MLO view(s) were taken. Prior study comparison: September 25, 2018, bilateral MG 3d screening mammo w/cad. September 22, 2017, bilateral MG 3d screening mammo w/cad. The breast tissue is heterogeneously dense. This may lower the sensitivity of mammography. No significant changes when compared with prior studies. ASSESSMENT: Negative, BI-RAD 1 RECOMMENDATION: Routine screening mammogram of both breasts in 1 year.
== END | disposition home or self-care (01) ==
LOC: RADMAMWWP 10:52
PROVIDERS: ATTEND Internal Medicine
DX: Z12.31 Encounter for screening mammogram for malignant neoplasm of breast (principal)
CPT/HCPCS: 77063; 77067

== ENCOUNTER → 2021-02-03 | Outpatient (CLI) | payer BC ==
--- NOTE | 2021-02-03 09:26 | ECHOF ---
Referral Reason:I10 MEASUREMENTS -------- HEIGHT: 170.2 cm WEIGHT: 117.9 kg BP: RVIDd: 3.3 cm (< 3.3) IVSd: 1.5 cm (0.6 - 1.1) LVIDd: 4.3 cm (3.9 - 5.3) LVPWd: 1.2 cm (0.6 - 1.1) IVSs: 2.0 cm LVIDs: 2.3 cm LVPWs: 2.1 cm LAESV Index (A-L): 36.33 ml/m Ao Diam: 3.2 cm (2.0 - 3.7) AV Cusp: 2.0 cm (1.5 - 2.6) MV EXCURSION: 19.315 mm (> 18.000) MV EF SLOPE: 55 mm/s (70 - 150) EPSS: 0.4 cm MV E Jaya: 0.94 m/s MV DecT: 156 ms MV A Jaya: 0.77 m/s MV E/A Ratio: 1.22 RAP: 5.00 mmHg RVSP: 36.39 mmHg FINDINGS -------- Sinus rhythm. This was a technically adequate study. The left ventricular size is normal. There is moderate concentric left ventricular hypertrophy. O verall left ventricular systolic function is normal with, an EF between 55 - 60 %. The diastolic fi lling pattern is normal for the age of the patient 12.10. The right ventricle is mildly enlarged. LA is moderately dilated 34-39 ml/m2 The right atrial size is normal. Interatrial septal aneurysm. The aortic valve is trileaflet and appears structurally normal. There is no evidence of aortic regu rgitation. There is no evidence of aortic stenosis. Dcfv-xx-hcuhdqel mitral regurgitation is present. Mild tricuspid regurgitation present. There is mild pulmonary hypertension. The right ventricular systolic pressure, as measured by Doppler, is 36.39mmHg. There is no pulmonic regurgitation present. The aortic root size is normal. Normal inferior vena cava with normal inspiratory collapse consistent with estimated right atrial pre ssure of 5 mmHg. There is no pericardial effusion. CONCLUSIONS -------- 1. The left ventricular size is normal. 2. There is moderate concentric left ventricular hypertrophy. 3. Overall left ventricular systolic function is normal with, an EF between 55 - 60 %. 4. The diastolic filling pattern is normal for the age of the patient 12.10 5. The right ventricle is mildly enlarged. 6. LA is moderately dilated 34-39 ml/m2 7. Interatrial septal aneurysm. 8. Scqk-mm-dznedmvu mitral regurgitation is present. 9. Mild tricuspid regurgitation present. 10. There is mild pulmonary hypertension. 11. The right ventricular systolic pressure, as measured by Doppler, is 36.39mmHg. ELECTRICAL AND INSTRUMENTATION MANAGER: Kaia Crum RDCS
--- NOTE | 2021-02-03 14:00 | EST ---
EXERCISE STRESS DATE OF SERVICE: 02/03/21 AGE: 55 SEX: F HT: 5'7" WT: 260 lbs. PROTOCOL: Julien STAGE: 3 DURATION OF EXERCISE: 7:00 HEART RATE REST: 91 BLOOD PRESSURE REST: 180/67 MAXIMUM HEART RATE ACHIEVED: 152 MAXIMUM BLOOD PRESSURE: 202/110 85% MPHR: 141 100% MPHR: 166 METS: 9.3 RESULTS: Baseline EKG revealed normal sinus rhythm without significant ST changes. Patient walked on a standard Julien protocol for 7 minutes and achieved a maximal heart rate of 152 beats per minute which is more than 85% of predicted maximal. She developed fatigue and shortness of breath but did not have any significant symptoms of angina. EKG did not reveal any ST-segment changes to indicate ischemia. There was no angina. There was no arrhythmia. By EKG criteria, this is a negative stress test with fair exercise capacity. MMYONG / EDIS: [id number] /
== END | disposition home or self-care (01) ==
LOC: RADECHMAIN 08:17
PROVIDERS: ATTEND Internal Medicine
DX: I08.1 Rheumatic disorders of both mitral and tricuspid valves (principal); I25.3 Aneurysm of heart; I27.20 Pulmonary hypertension, unspecified
CPT/HCPCS: 93017; 93306

== ENCOUNTER → 2021-03-19 | Outpatient (CLI) | payer BC ==
--- NOTE | 2021-03-19 09:54 | US ---
EXAMINATION TYPE: US liver DATE OF EXAM: 03/19/2021 COMPARISON: CT abdomen and pelvis July 12, 2016 CLINICAL HISTORY: R94.5 Abnormal result of liver function studies. EXAM MEASUREMENTS: Liver Length: 20.1 cm Gallbladder Wall: 0.2 cm CBD: 1.0 cm Right Kidney: 10.8x6.4x5.7 cm Pancreas: wnl Liver: Increased attenuation, decreased visualization of vessels suggestive of fatty infiltrate, foc al fatty sparring adjacent to the GB Gallbladder: wnl Evidence for sonographic Cano's sign: No CBD: wnl Right Kidney: wnl Visualized portion of pancreas unremarkable on initial images. Liver is heterogeneously hyperechoic. No surrounding ascites. Evaluation for focal masses suboptimal due to the heterogeneity. Gallbladder seen without shadowing mobile gallstones. Mild extrahepatic biliary dilatation up to 10 mm though thi s measured approximately [address] coronal image 41 from 2017. No intrahepatic biliary dilatation. N o right-sided hydronephrosis. IMPRESSION: New heterogeneous hyperechoic appearance of liver could reflect diffuse fatty infiltratio n and/or underlying hepatocellular disease. Consider ultrasound elastography or imaging guided random biopsy to further evaluate.
== END | disposition home or self-care (01) ==
LOC: RADUSWWP 08:50
PROVIDERS: ATTEND Internal Medicine
DX: R93.2 Abnormal findings on diagnostic imaging of liver and biliary tract (principal)
CPT/HCPCS: 76705

== ENCOUNTER → 2021-04-26 | Outpatient (CLI) | payer BC ==
[2021-04-26 20:03] LABS: Basophils # (A) 0.08 X 10*3/uL (0.00-0.10); Basophils % (A) 1.4 %; Eosinophils # (A) 0.34 X 10*3/uL (0.04-0.35); Eosinophils % (A) 5.8 %; HGB 14.2 g/dL (12.0-15.0); Lymphocytes # (A) 1.52 X 10*3/uL (0.90-5.00); Lymphocytes % (A) 25.8 %; MCH 30.8 pg (27.0-32.0); MCHC 31.6 g/dL (32.0-37.0); MCV 97.6 fL (80.0-97.0); Mean Platelet Volume 13.2 fL (9.5-12.2); Monocytes # (A) 0.52 X 10*3/uL (0.20-1.00); Monocytes % (A) 8.8 %; Neutrophils # (A) 3.42 X 10*3/uL (1.80-7.70); Neutrophils % (A) 57.9 %; Platelet Count 184 X 10*3/uL (140-440); RBC 4.61 X 10*6/uL (4.10-5.20); RDW 13.3 % (11.5-14.5)
[2021-04-27 01:38] LABS: % Iron Saturation 32.26 (12.00-45.00); African American GFR (CKD) 100.3 (60.0-200.0); Albumin 4.7 g/dL (3.8-4.9); Albumin/Globulin Ratio 1.94 (1.60-3.17); Anion Gap 15.6 mmol/L (10.00-18.00); BUN/Creat Ratio 14.36 Ratio (12.00-20.00); Blood Urea Nitrogen 11.1 mg/dL (9.0-27.0); Calcium 9.9 mg/dL (8.7-10.3); Carbon Dioxide 24.1 mmol/L (20.0-27.5); Globulin 2.4 g/dL (1.6-3.3); Non-African American GFR(CKD) 86.5 (60.0-200.0); Potassium 4.1 mmol/L (3.5-5.5); Total Bilirubin 1.1 mg/dL (0.30-1.20); Total Protein 7.1 g/dL (6.2-8.2)
[2021-04-27 01:39] LABS: Hepatitis B Surface Antigen Nonreactive (Nonreactive); Hepatitis C IgG Antibody Nonreactive (Nonreactive)
[2021-04-27 01:40] LABS: Protein, Total 7.2 g/dL (6.2-8.2)
[2021-04-27 02:36] LABS: Ceruloplasmin 26.2 mg/dL (20.0-60.0)
[2021-04-27 13:37] LABS: Albumin 4.23 g/dL (3.80-4.90); Gamma Globulin 0.96 g/dL (0.70-1.50)
== END | disposition home or self-care (01) ==
LOC: LABWHC1 09:07
PROVIDERS: ATTEND Internal Medicine Gastroenterology
DX: K76.0 Fatty (change of) liver, not elsewhere classified (principal); R74.01 Elevation of levels of liver transaminase levels
CPT/HCPCS: 36415; 80053; 82103; 82390; 82728; 83516; 83540; 83550; 84165; 85025; 86038; 86039; 86803; 87340

== ENCOUNTER → 2021-10-05 | Outpatient (CLI) | payer BC ==
--- NOTE | 2021-10-06 10:12 | US ---
EXAMINATION TYPE: US kidneys/renal and bladder DATE OF EXAM: 10/05/2021 COMPARISON: CT 07/12/2016 CLINICAL HISTORY: 56-year-old female DYSURIA / PAIN. EXAM MEASUREMENTS: Right Kidney: 13.2 x 7.1 x 5.4 cm Left Kidney: 11.8 x 5.8 x 5.4 cm Right Kidney: Extrarenal pelvis noted. Limited detail visualization due to body habitus. No calyceal dilatation to suggest edwin hydronephrosis. Left Kidney: No hydronephrosis or masses seen. Bladder: Appears unremarkable. Bilateral Jets seen: Yes Incidental echogenic liver parenchyma. IMPRESSION: 1. No hydronephrosis. 2. Incidental hepatic steatosis. Correlate with LFTs, lipid profile, and patient risk factors.
--- NOTE | 2021-10-06 10:15 | US ---
EXAMINATION TYPE: US pelvis complete transvag DATE OF EXAM: 10/05/2021 COMPARISON: None CLINICAL HISTORY: 56-year-old female DYSURIA / PAIN. Dysuria, pelvic pain. . Hx C section, uteri ne fibroids. TECHNIQUE: Transabdominal sonographic images of the pelvis were acquired. Transvaginal sonographic i mages were medically necessary to better assess the following anatomy: Ovaries Date of LMP: 10/03/2021 EXAM MEASUREMENTS: Uterus: 12.8 x 8.2 x 7.4 cm Endometrial Stripe: 0.55 cm 1. Uterus: Bulky and very heterogeneous myometrium. Uterus is anteverted. Limited due to shadowing. H ypoechoic area seen at the posterior body: 3.9 x 2.8 x 3.9 cm. This appears intramural but may have a slight submucosal component. Hypoechoic area seen at the anterior fundus: 2.0 x 2.3 x 1.7 cm and is intramural and partially subserosal. Septated anechoic area seen in cervix: 1.3 x 1.0 x 0.7 cm. 2. Endometrium: Limited visualization due to extensive myometrial heterogeneity, estimated at 6 mm 3. Right Ovary: Not visualized. 4. Left Ovary: Not visualized. 5. Bilateral Adnexa: Appear wnl 6. Posterior cul-de-sac: Appears wnl IMPRESSION: 1. Bulky uterus with very heterogeneous myometrium. At least a couple underlying focal fibroids are n oted measuring up to 3.9 cm. The heterogeneity could reflect diffuse small fibroid change or adenomyo sis. Consider female pelvic MRI for further assessment. 2. Only portions of the endometrial stripe are visualized, estimated at 6 mm. 3. Unable to visualize either ovary.
== END | disposition home or self-care (01) ==
LOC: RADUSWWP 12:07
PROVIDERS: ATTEND Internal Medicine
DX: K76.0 Fatty (change of) liver, not elsewhere classified (principal); D25.9 Leiomyoma of uterus, unspecified
CPT/HCPCS: 76770; 76830; 76856

== ENCOUNTER → 2021-10-26 | Outpatient (CLI) | payer BC ==
[2021-10-26 14:56] LABS: African American GFR (CKD) 106.6 (60.0-200.0); Albumin 4.6 g/dL (3.8-4.9); Albumin/Globulin Ratio 1.93 (1.60-3.17); Anion Gap 12.2 mmol/L (10.00-18.00); BUN/Creat Ratio 20.27 Ratio (12.00-20.00); Blood Urea Nitrogen 14.9 mg/dL (9.0-27.0); Calcium 9.8 mg/dL (8.7-10.3); Carbon Dioxide 26.8 mmol/L (20.0-27.5); Globulin 2.4 g/dL (1.6-3.3); Potassium 3.9 mmol/L (3.5-5.5); Total Bilirubin 1.4 mg/dL (0.30-1.20)
[2021-10-26 15:20] LABS: Basophils # (A) 0.05 X 10*3/uL (0.00-0.10); Basophils % (A) 1.1 %; Eosinophils # (A) 0.22 X 10*3/uL (0.04-0.35); Eosinophils % (A) 4.9 %; HGB 14.4 g/dL (12.0-15.0); Immature Grans, Automated 0.2 %; Lymphocytes # (A) 1.36 X 10*3/uL (0.90-5.00); Lymphocytes % (A) 30.6 %; MCH 29.8 pg (27.0-32.0); Mean Platelet Volume 13.4 fL (9.5-12.2); Monocytes # (A) 0.39 X 10*3/uL (0.20-1.00); Monocytes % (A) 8.8 %; NRBC Per 100 WBC 0 /100 WBCS (0.0-0.0); Neutrophils # (A) 2.42 X 10*3/uL (1.80-7.70); Neutrophils % (A) 54.4 %; Platelet Count 178 X 10*3/uL (140-440); RBC 4.84 X 10*6/uL (4.10-5.20); RDW 13.2 % (11.5-14.5); WBC 4.45 X 10*3/uL (4.50-10.00)
== END | disposition home or self-care (01) ==
LOC: LABWHC1 10:12
PROVIDERS: ATTEND Internal Medicine Gastroenterology
DX: K76.0 Fatty (change of) liver, not elsewhere classified (principal)
CPT/HCPCS: 36415; 80053; 85025

== ENCOUNTER → 2021-12-06 | Outpatient (CLI) | payer BC ==
--- NOTE | 2021-12-06 14:13 | US ---
EXAMINATION TYPE: US thyroid st tissue head/neck DATE OF EXAM: 12/06/2021 COMPARISON: NONE CLINICAL HISTORY: L04.0 ACUTE LYMPHADENITIS OF FACE. Patient feels palpable right submandibular area. There appears to be 2 nodules within right submandibular gland. 1.) Hyperechoic nodule measuring 2.0 x 1.2 x 2.8cm 2.) Hypoechoic nodule measuring 1.7 x 0.8 x 1.2cm Technically difficult due to shadowing from mandible. IMPRESSION: There are 2 nonspecific nodules demonstrated within the right submandibular gland. Consi kai further evaluation with direct sampling.
== END | disposition home or self-care (01) ==
LOC: RADUSWWP 09:39
PROVIDERS: ATTEND Internal Medicine
DX: E04.1 Nontoxic single thyroid nodule (principal)
CPT/HCPCS: 76536

== ENCOUNTER → 2022-01-06 | Outpatient (CLI) | payer BC ==
--- NOTE | 2022-01-06 09:50 | CT ---
EXAMINATION TYPE: CT soft tissue neck w con DATE OF EXAM: 01/06/2022 COMPARISON: Neck ultrasound 12/06/2021 HISTORY: 56-year-old female Mass, lump, localized swelling right neck, marked with BB TECHNIQUE: Contiguous axial scanning of the soft tissues of the neck performed with IV Contrast, carl ent injected with 70 mL of Isovue 300. Coronal/sagittal reconstructions performed. CT DLP: 580 mGycm Automated exposure control for dose reduction was used. FINDINGS: 1.6 cm mucosal retention cyst right maxillary sinus. Smaller within the left maxillary sinus. Visuali zed orbits and globes are clear as are the mastoid air cells. Subcutaneous nodules along the posterior aspect of the lower head and upper neck. There are approxima tely 2 on either side measuring up to 1.4 cm on left and 1.3 cm on the right. These have a cystic, pa rtially calcified appearance and are favored to represent sebaceous cysts. Correlate clinically. Slightly symmetrically prominent soft tissues within the left posterior nasopharynx, referred axial i mage 20 may reflect asymmetric adenoid hypertrophy. Bilateral symmetrical palatine tonsillar hypertrophy. Bilateral lingual tonsillar hypertrophy. Epiglottis and prevertebral soft tissues satisfactory. Some symmetrical thickening at the level of the lower aryepiglottic folds, axial image 47 may be due to positioning. Glottic structures, tracheal column, and visualized upper lungs show no gross abnormality. Bovine configuration to the aortic arch. The thyroid gland and bilateral parotid glands appear satisfactory. Questionable 1.2 cm low-density nodular area along the anterior aspect of the right submandibular gla nd, axial image 39. There is a palpable marker located along the inferior right submandibular space. Asymmetrically more numerous right semierect space lymph nodes which are not nonenlarged measuring up to 4 mm. No cervical lymphadenopathy by CT size criteria. Bones: Scattered mild to moderate degenerative change in the cervical spine. IMPRESSION: 1. PALPABLE MARKER OVERLYING THE RIGHT SUBMANDIBULAR REGION. QUESTIONABLE UNDERLYING 1.2 CM NODULAR A ASHLEIGH /LESION ANTERIOR RIGHT SUBMANDIBULAR GLAND, AXIAL IMAGE 39. THE POSSIBILITY OF A SALIVARY GLAND T UMOR IS NOT EXCLUDED AT THIS TIME. RECOMMEND CLINICAL SURVEILLANCE AND EITHER FOLLOW-UP CT/ULTRASOUND VERSUS CONSIDERATION TO TISSUE SAMPLING. 2. SCATTERED AREAS OF THICKENING ALONG THE MUCOSAL SPACE INCLUDING THE LEFT POSTERIOR NASOPHARYNX, BI LATERAL PALATINE AND LINGUAL TONSILS, AND LOWER BILATERAL ARYEPIGLOTTIC FOLDS. CORRELATE WITH DIRECT INSPECTION TO EXCLUDE MUCOSAL LESIONS. 3. APPROXIMATELY 4 SUBCUTANEOUS NODULES MEASURING UP TO 1.4 CM POSTERIOR BASE OF THE HEAD, SUSPECTED SEBACEOUS CYSTS. CORRELATE CLINICALLY.
== END | disposition home or self-care (01) ==
LOC: RADCTMAIN 08:23
PROVIDERS: ATTEND Otolaryngology
DX: E04.2 Nontoxic multinodular goiter (principal)
CPT/HCPCS: 70491; Q9967

== ENCOUNTER 2022-01-31 12:45 | Day surgery (SDC) | payer BC ==
[2022-01-31 13:17] VITALS: RESP 18; TEMP 97.7
[2022-01-31 14:45] VITALS: BP 165/90; PULSE 56
--- NOTE | 2022-01-31 15:52 | US ---
EXAMINATION TYPE: US fine needle aspiration DATE OF EXAM: 01/31/2022 HISTORY: Submandibular mass on the right. correlation to prior CT soft tissue neck 01/06/2022, ultrasound 12/06/2021 FINDINGS: Maximal barrier technique was utilized. Hand hygiene achieved with soap and water and alcohol-based hand rub. The skin overlying a suitable path to the patient's palpable mass in the submandibular gland on the right was localized with ultrasound and the overlying skin prepped and draped. Ultrasound was utilized with sterile technique. Lidocaine was used for local anesthesia. 2 passes with a 25-gauge needle were made under direct ultrasound guidance into the palpable portion of the submandibular gland which appears somewhat hypoechoic as compared to the remainder of the gland but is well-defined. Specimen submitted to Pathology. Following the procedure, hemostasis achieved and the patient is discharged in stable condition without complication. IMPRESSION:STATUS POST ULTRASOUND GUIDED NEEDLE ASPIRATION BIOPSY OF right submandibular palpable MASS, PATHOLOGY IS PENDING. THIS PROCEDURE IS PERFORMED BY THE UNDERSIGNED. SAIGE
== END 2022-01-31 14:30 | disposition home or self-care (01) ==
LOC: RADPROMAIN 12:45
PROVIDERS: ATTEND Otolaryngology
DX: R22.0 Localized swelling, mass and lump, head (principal)
CPT/HCPCS: 10005; 20206; 36415; 76942; 88173; 88305

== ENCOUNTER 2022-02-18 08:37 | Day surgery (SDC) | payer BC ==
[2022-02-17 08:23] VITALS: BMI 34.4
--- NOTE | 2022-02-17 19:42 | HP ---
HISTORY AND PHYSICAL CHIEF COMPLAINT: Nasopharyngeal mass. HISTORY OF PRESENT ILLNESS: This patient is a very pleasant 56-year-old female. She was recently seen in my office for evaluation of nodules on the right side of her neck. The patient states that she had recently lost a significant amount of weight and that she had noted that there was a lump just below her jaw bone on the right side. An ultrasound was performed, which showed evidence of lesions, which are approximately 2 cm and 1.7 cm in size, and they appear to be within the right submandibular gland. These appear to be nonspecific. At the time that the patient was seen in my office, clinical examination, which included bimanual palpation of the neck and floor of the mouth, revealed that there were several nodules located in the area on the right submandibular gland. These nodules were nontender, nonfluctuant, well-circumscribed, appeared to be less than 1.5 cm, and also appeared to be subcutaneous. The remainder of the head and neck exam was unremarkable. A CT scan of the neck was performed initially, and this revealed evidence of subcutaneous nodules along the posterior aspect of the lower head and upper neck in the area of the left sternomastoid muscle. The lesions on the CT scan appeared to represent sebaceous cyst, and a similar lesion was located on the right side of the neck. In addition to this, the patient was noticed to have prominent adenoidal hypertrophy, which is unusual in an adult. Furthermore, there appeared to be bilateral symmetrical hypertrophy of the palatine tonsils. There was a question of a possible left posterior nasopharyngeal mass. This patient does not have a history of smoking or tobacco use. An attempted ultrasound-guided needle biopsy of the neck masses was inconclusive in the area of the right submandibular gland. Because of the presence of a possible nasopharyngeal mass, it was recommended that the patient undergo suspension microlaryngoscopy and probable biopsy of this area under general anesthesia. PAST MEDICAL HISTORY: Reveals the patient has no known allergies to medications. CURRENT MEDICATIONS: Include: 1. Metoprolol. 2. Lisinopril. 3. Ventolin inhaler. 4. Atorvastatin. REVIEW OF SYSTEMS: CARDIOVASCULAR: Positive for hypertension. RESPIRATORY: Positive for asthma. GASTROINTESTINAL: Positive for GERD (gastroesophageal reflux disorder). METABOLIC/ENDOCRINE: Positive for hypercholesterolemia. MUSCULOSKELETAL: Positive for osteoarthritis. The remainder of the review of systems is unremarkable. PREVIOUS SURGERIES: Include bilateral knee replacement, D and C, tubal ligation, benign breast biopsies, and cataract surgery. The patient is 1 , 2 , and 3 para. Zero miscarriage. PHYSICAL EXAMINATION: GENERAL: The patient is a 56-year-old female, who is alert and cooperative. HEENT: The patient is normocephalic. Tympanic membranes are normal. Middle ear space is free of any fluid or infection. Pupils are equal, round, and reactive to light and accommodation. Extraocular movements are within normal limits. Intranasal examination reveals moderate septal deviation with compensatory hypertrophy of the inferior turbinates and moderate amount of mucus on the mucous membranes and draining down the posterior pharynx. Examination of the oropharynx is unremarkable. Palpation of the neck is as described above in the history of the present illness and will not be repeated here. Cranial nerves 2 through 12 and the remainder of the head and neck exam are within normal limits. CHEST/CARDIOVASCULAR: Both lung love are clear to percussion and auscultation. The patient is in regular sinus rhythm. S1 and S2 are present without any murmurs, S3s, or S4s. Peripheral pulses are bilaterally symmetrical and within normal limits. ABDOMEN: There is no evidence of any masses, megaly, or tenderness. The abdomen is soft. SKIN: Unremarkable. MUSCULOSKELETAL/NEUROLOGICAL: All within normal limits. PELVIC/RECTAL: Deferred at this time because the patient has this done on a regular basis at her family physician's office. The remainder of the physical exam is essentially unremarkable. ASSESSMENT: Left nasopharyngeal mass. PLAN: The patient is scheduled to undergo a suspension microlaryngoscopy and examination of the left nasopharynx under general anesthesia in a.m. Attention RNs in the pre-surgical area: I have ordered for this patient to receive 2 g of Ancef as a pre-surgical prophylactic antibiotic to be given by IV once an intravenous line has been established. If the Pharmacy Department sends a different pre-surgical prophylactic antibiotic to the pre-surgical area for this patient, that medication should be canceled, and it should be returned to the Pharmacy Department. Please make sure that the patient's account is credited appropriately. I have also ordered for this patient to receive 1000 mg of Ofirmev IV to be given once an intravenous line has been established. I have discussed the risks, benefits and alternative therapies for the above-mentioned procedure and for both sedation/analgesia as well as necessary blood product administration, if indicated, as they pertain to this patient. The patient has indicated her understanding and acceptance of the risks and procedures discussed. MMODL / IJN: [id number] /
[~2022-02-18 08:37] MED LIST: DEXAMETHASONE SOD PHOSPHATE 4 MG/ML 1 ML VIAL IV ONE; HYDROmorphone 0.5 MG/0.5 ML SYRINGE IVP PRN; LACTATED RINGERS 1,000 ML IV SCH; LIDOCAINE 1% (10MG/ML) FOR IV START INTRADERMA PRN; MIDAZOLAM 2 MG/2 ML VIAL IV PRN; ONDANSETRON 4 MG/2 ML VIAL IVP ONE; Pre Op ABX Message 1 EACH MISC MISCELLANE ONE
[2022-02-18] MEDS ORDERED: ACETAMINOPHEN IV (For NPO) 1,000 MG in EMPTY BAG 1 BAG IVPB ONE (10:00)
[2022-02-18] MEDS ORDERED: GLYCOPYRROLATE 0.2 MG/ML 2 ML VIAL ONE (10:01)
[2022-02-18] MEDS ORDERED: DEXAMETHASONE SOD PHOSPHATE 10 MG/ML 1 ML VIAL ONE (10:01)
[2022-02-18] MEDS ORDERED: fentaNYL (PF) 50 MCG/ML 2 ML AMP ONE (10:01)
[2022-02-18] MEDS ORDERED: SUCCINYLCHOLINE CHLORIDE 200 MG/10 ML VIAL IV ONE (10:01)
[2022-02-18] MEDS ORDERED: LIDOCAINE 2% INJ 20 MG/ML (2 ML VIAL) ONE (10:01)
[2022-02-18] MEDS ORDERED: NEOSTIGMINE 1 MG/ML 10 ML VIAL ONE (10:01)
[2022-02-18] MEDS ORDERED: ROCURONIUM 10 MG/ML (5 ML VIAL) IV ONE (10:01)
[2022-02-18] MEDS ORDERED: LIDOCAINE 4% LTA KIT (4 ML) TOPICAL ONE (10:01)
[2022-02-18] MEDS ORDERED: PROPOFOL 10 MG/ML 20 ML VIAL IV ONE (10:01)
[2022-02-18] MEDS ORDERED: MIDAZOLAM 2 MG/2 ML VIAL ONE (10:01)
[2022-02-18] MEDS ORDERED: LACTATED RINGERS 1,000 ML IV ONE (11:06)
[2022-02-18 11:22] VITALS: TEMP 96.9
[2022-02-18 11:35] VITALS: RESP 16
[2022-02-18 12:59] VITALS: BP 144/90; PULSE 56
--- NOTE | 2022-02-18 21:43 | OP ---
OPERATIVE REPORT PREOPERATIVE DIAGNOSIS: Nasopharyngeal mass, final pathology pending. POSTOPERATIVE DIAGNOSIS: Nasopharyngeal mass, final pathology pending. ANESTHESIA: General. PROCEDURES PERFORMED: 1. Suspension microlaryngoscopy with biopsy of the base of tongue. 2. Examination of the nasopharynx under general anesthesia. DESCRIPTION OF PROCEDURE: The patient was placed on the operating table in supine position, and after uneventful induction and endotracheal intubation, satisfactory general anesthesia was obtained. Next, the patient was draped in usual customary fashion. Following this, the laryngoscope was introduced into the patient's oropharynx, and the entire hypopharynx including the right and left piriform sinuses, base of tongue, valleculae, and epiglottis were inspected and found to be free of any obvious disease. Next, the tip of the laryngoscope was introduced into the laryngeal introitus, and Lewy apparatus was attached to the handle of the laryngoscope, and the laryngoscope was suspended on the patient's chest. Next, using the Zeiss operating microscope and under magnified visualization, inspection of the patient's larynx did not reveal any suspicious lesions such as nodules, growth, masses, etc. Next, the Lewy apparatus was removed, and using the laryngoscope, the base of the tongue was more thoroughly inspected. There appeared to be some slight hypertrophy of the lingual tonsil tissue on the base of the tongue. Multiple blind biopsies of this tissue on the left base of tongue were taken using a pair of upbiting microlaryngeal forceps, and the specimens were sent in formalin for permanent sectioning. Further inspection of the valleculae did not reveal any suspicious lesions. Next, after removing the laryngoscope, a #3 Garth-Sincere mouth gag was introduced into the oropharynx and expanded. The mouth gag was then suspended on a Tao stand. Next, a red rubber catheter was inserted into the patient's right naris and brought out through the oropharynx and clamped, and this was used to elevate the soft palate. By elevating the soft palate and using a laryngeal mirror, the entire nasopharynx was inspected. It was to be noted that the tonsils that had been described as being hypertrophied and enlarged on the CT scan had actually atrophied bilaterally and did not appear unusual or abnormal in their texture or appearance. These tonsils were also palpated by my finger, and they felt normal. The nasopharynx itself which had shown a possible nasopharyngeal mass on the CT scan was found to be completely free of any suspicious nasopharyngeal mass. There was no evidence of any residual or remnant adenoidal tissue. Both eustachian tube orifices appeared to be normal, and there did not appear to be any suspicious nodules or masses or growths around these tubes. The nasopharynx was also palpated with my index finger, and all tissues were found to be normal in texture. Therefore, no biopsies were taken of the tonsils or of the nasopharynx. The patient was given 10 mg of Decadron intraoperatively to reduce any possible postoperative edema. At this point, the procedure was terminated. There were no intraoperative complications. The only biopsy performed was of the left base of tongue because the other areas appeared to be completely normal. Estimated blood loss was less than 1 mL. The patient tolerated the procedure well and was returned to recovery room in satisfactory condition. Final pathology of the left base of tongue biopsy is pending. MMODL / IJOlayinka: [id number] / MTDD
== END 2022-02-18 13:17 | disposition home or self-care (01) ==
LOC: OR 08:37
PROVIDERS: ATTEND Otolaryngology
DX: J35.1 Hypertrophy of tonsils (principal); I10 Essential (primary) hypertension; E78.5 Hyperlipidemia, unspecified; J45.909 Unspecified asthma, uncomplicated; G47.33 Obstructive sleep apnea (adult) (pediatric); K21.9 Gastro-esophageal reflux disease without esophagitis; Z99.89 Dependence on other enabling machines and devices; Z79.899 Other long term (current) drug therapy
CPT/HCPCS: 81025; 88305; 31536; J2250; J0330; J1100 ×2; J2710; J0690; J2405; J3010; J0131; J2704; J2001

== ENCOUNTER → 2023-07-06 | Outpatient (CLI) | payer BC ==
--- NOTE | 2023-07-09 18:06 | MM ---
Reason for Exam: Screening (asymptomatic). Last screening mammogram was performed 12 month(s) ago. Patient History: Menarche at age 12. First Full-Term at age 21. Postmenopausal. 1996, Benign Excisional Biopsy on the left side. 1995, Benign Excisional Biopsy on the left side. Risk Values: Katlin 5 year model risk: 1.9%. NCI Lifetime model risk: 11.4%. Prior Study Comparison: 07/29/2016 Bilateral Screening Mammogram, [facility]. 09/22/2017 Bilateral Screening Mammogram, [facility]. 09/25/2018 Bilateral Screening Mammogram, [facility]. 05/15/2020 Bilateral Screening Mammogram, [facility]. 07/02/2021 Bilateral Screening Mammogram, [facility]. 07/04/2022 Bilateral MG 3D screening mammo w/cad, [facility]. Tissue Density: There are scattered areas of fibroglandular density. Findings: Analyzed By CAD. Chronic nodularity on the left. Grouped calcifications upper outer quadrant left breast are increasing especially when compared to studies before 2022. Further magnification views are recommended. Otherwise, no significant change. Overall Assessment: Incomplete: need additional imaging evaluation, BI-RAD 0 Management: Special View Mammogram of the left breast. . [facility] will attempt to contact patient to return for supplemental views and ultrasound if indicated. Electronically signed and approved by: Mayte Anthony M.D. Radiologist
== END | disposition home or self-care (01) ==
LOC: RADMAMWWP 10:09
PROVIDERS: ATTEND Internal Medicine
DX: Z12.31 Encounter for screening mammogram for malignant neoplasm of breast (principal); Z78.0 Asymptomatic menopausal state
CPT/HCPCS: 77063; 77067

== ENCOUNTER → 2023-07-12 | Outpatient (CLI) | payer BC ==
--- NOTE | 2023-07-12 08:52 | MM ---
Reason for Exam: Additional evaluation requested from abnormal screening. Last screening mammogram was performed less than 1 month ago. Patient History: Menarche at age 12. First Full-Term at age 21. Postmenopausal. Patient has history of breast feeding. 1996, Benign Excisional Biopsy on the left side. 1995, Benign Excisional Biopsy on the left side. Risk Values: Katlin 5 year model risk: 1.9%. NCI Lifetime model risk: 11.4%. Prior Study Comparison: 07/02/2021 Bilateral Screening Mammogram, [facility]. 07/04/2022 Bilateral MG 3D screening mammo w/cad, [facility]. 07/06/2023 Bilateral MG 3D screening mammo w/cad, [facility]. Tissue Density: Left: There are scattered areas of fibroglandular density. Findings: Analyzed By CAD. Faint grouped calcifications remain in the left breast lateral aspect upper quadrant. Which have increased compared to more distant prior's. These are approximately 6.2 cm from nipple on CC view and ML view approximately 5.9 cm from the nipple. Overall Assessment: Suspicious, BI-RAD 4 Management: Stereotactic Core Biopsy of the left breast. Results were given to the patient verbally at the time of exam. Patient should continue monthly self-breast exams. A clinical breast exam by your physician is recommended on an annual basis. This exam should not preclude additional follow-up of suspicious palpable abnormalities. Note on Katlin scores and lifetime risk: 1. A Katlin score greater than 3% is considered moderate risk. If this is the case, consider specialist referral to assess eligibility for a risk reducing agent. 2. If overall lifetime risk for the development of breast cancer is 20% or higher, the patient may qualify for future screening with alternating mammogram and breast MRI. Electronically signed and approved by: Adam Cabrera DO
== END | disposition home or self-care (01) ==
LOC: RADMAMWWP 08:17
PROVIDERS: ATTEND Internal Medicine
DX: R92.322 Mammographic fibroglandular density, left breast (principal); R92.1 Mammographic calcification found on diagnostic imaging of breast; Z78.0 Asymptomatic menopausal state
CPT/HCPCS: 77061; 77065

== ENCOUNTER → 2023-07-20 | Day surgery (SDC) | payer BC ==
[~2023-07-20] MED LIST changes: +ALPRAZolam 0.25 MG TAB PO PRN; -DEXAMETHASONE SOD PHOSPHATE 4 MG/ML 1 ML VIAL IV ONE; -HYDROmorphone 0.5 MG/0.5 ML SYRINGE IVP PRN; -LACTATED RINGERS 1,000 ML IV SCH; -LIDOCAINE 1% (10MG/ML) FOR IV START INTRADERMA PRN; -MIDAZOLAM 2 MG/2 ML VIAL IV PRN; -ONDANSETRON 4 MG/2 ML VIAL IVP ONE; -Pre Op ABX Message 1 EACH MISC MISCELLANE ONE
[2023-07-20] MEDS: ALPRAZolam 0.25 MG TAB PO PRN (10:09)
[2023-07-20 10:34] VITALS: RESP 16; TEMP 98.1
[2023-07-20 11:49] VITALS: BP 141/88; PULSE 76
--- NOTE | 2023-07-20 21:39 | MM ---
Risk Values: Katlin 5 year model risk: 1.9%. NCI Lifetime model risk: 11.4%. Prior Study Comparison: 07/04/2022 Bilateral MG 3D screening mammo w/cad, [facility]. 07/06/2023 Bilateral MG 3D screening mammo w/cad, [facility]. 07/12/2023 Left MG 3D work up w/cad , [facility]. Pathology Description: Marker Left Behind. Specimen Radiograph. Calcium Found: Yes Approach: Lateral to Medial Cores: 71 Skin Nicks: 1 Gauge: 9 The procedure of stereotactic guided core biopsy was explained to the patient. Benefits, alternatives, and risks were discussed. An informed consent was then obtained. [facility]. Shortness pathway was lateral approach. I performed the localization, then surgeon, Dr. Pablo performed the remainder of the procedure. A vacuum assisted biopsy gun was used to obtain 7 core samples. The patient tolerated the procedure well without any immediate complication. The patient was kept in the radiology department for short stay after the procedure and then discharged home in stable condition. Targeted calcifications are identified in specimen mammogram. Post biopsy mammogram shows the clip to appear in satisfactory position relative to the targeted area of concern on the preprocedure images. Impression: SUCCESSFUL, UNCOMPLICATED STEREOTACTIC GUIDED CORE BIOPSY OF AREA OF CONCERN IN THE LEFT BREAST. Pathology Results: Results pending. Electronically signed and approved by: Bc Pablo D.O. Radiologis
== END | disposition home or self-care (01) ==
LOC: RADMAMWWP 09:55
PROVIDERS: ATTEND Internal Medicine
DX: N60.22 Fibroadenosis of left breast (principal); N60.82 Other benign mammary dysplasias of left breast
CPT/HCPCS: 88305; 19081; A4648; J2001

== ENCOUNTER → 2024-10-01 | Outpatient (CLI) | payer BC ==
--- NOTE | 2024-10-01 11:56 | MM ---
Reason for Exam: Screening (asymptomatic). Last mammogram was performed 1 year(s) and 3 month(s) ago. Patient History: Menarche at age 12. First Full-Term at age 21. Postmenopausal. Patient has history of breast feeding. 07/20/2023, Benign MG stereo VAD BX LT on the left side. 1996, Benign Excisional Biopsy on the left side. 1995, Benign Excisional Biopsy on the left side. Risk Values: Katlin 5 year model risk: 2.0%. NCI Lifetime model risk: 11.1%. Prior Study Comparison: 07/04/2022 Bilateral MG 3D screening mammo w/cad, [facility]. 07/06/2023 Bilateral MG 3D screening mammo w/cad, [facility]. 07/12/2023 Left MG 3D work up w/cad LT, [facility]. Tissue Density: There are scattered areas of fibroglandular density. Findings: Analyzed By CAD. Mammotome biopsy clip in the left breast is present at site of prior grouped small round calcifications. Benign-appearing vascular calcifications in the right breast are redemonstrated. There is no suspicious new group of microcalcifications or new suspicious mass in either breast. Overall Assessment: Benign, BI-RAD 2 Management: Screening Mammogram of both breasts in 1 year. . Patient should continue monthly self-breast exams. A clinical breast exam by your physician is recommended on an annual basis. This exam should not preclude additional follow-up of suspicious palpable abnormalities. Note on Katlin scores and lifetime risk: 1. A Katlin score greater than 3% is considered moderate risk. If this is the case, consider specialist referral to assess eligibility for a risk reducing agent. 2. If overall lifetime risk for the development of breast cancer is 20% or higher, the patient may qualify for future screening with alternating mammogram and breast MRI. [facility], , 10/01/2024 11:52 AM. Electronically signed and approved by: Mitch Lockhart M.D.
== END | disposition home or self-care (01) ==
LOC: RADMAMWWP 10:15
PROVIDERS: ATTEND Internal Medicine
DX: Z12.31 Encounter for screening mammogram for malignant neoplasm of breast (principal); R92.1 Mammographic calcification found on diagnostic imaging of breast; R92.323 Mammographic fibroglandular density, bilateral breasts; Z78.0 Asymptomatic menopausal state
CPT/HCPCS: 77063; 77067